=== PATIENT | female | born 1960 | race Caucasian/White ===

== ENCOUNTER → 2024-09-17 | Outpatient (CLI) | payer OTHER, SELFPAY ==
--- NOTE | 2024-09-14 16:30 | LES_PTH ---
PATIENT: MILLA JOHNSTON LOC: [facility] U#:[id number] AGE/SX: 63/F ROOM: RE09/17/[address]: Dr. Howard Tarango MD : 1960 BED: DIS: 09/17/2024 SPEC #: [id number] RECD: 09/17/24 10:15 STATUS: AZUCENA REGumaro #: [id number] ALBERT: 09/14/24 16:[address]: Howard Tarango DEPT: SURGICAL PATHOLOGY RECD BY: Felix Hanna ENTERED: 09/17/24 11:31 SP TYPE: Lesion OTHR DR: No Primary Care Phys Tissues: A - Skin of eyelid, NOS Procedures: Surgery Specimen Level IV HEADER OPERATION: Cyst removal, left lower eyelid PRE-OP DIAGNOSIS: Cyst vs nevus TISSUE SUBMITTED: A- Left lower eyelid lesion MICROSCOPIC DIAGNOSIS A. Eyelid, lower, left, cyst, shave: * Hidrocystoma. MICROSCOPIC DESCRIPTION Slides are reviewed. GROSS DESCRIPTION A. Received in formalin labeled with the patient's name and date of . Designated as left lower eyelid is a 0.3 x 0.2 x <0.1 cm slightly irregular daugherty skin shave devoid of orientation. The resection margin is inked black. Entirely submitted in 1 cassette. CO 09/17/2024 [id number]
--- OUTSIDE RECORDS SUMMARY | 2024-09-17 22:07 | XMS RPT_ITS | CCD ---
Author Organization [facility] Care Team Providers Care Shuttle Van Driver Name Role Phone REFERRING, OSMAN BRENDA MANNING Unavailable Unavailable FABRICE BIRCH Unavailable Unavailable DIMITRI VARGAS MD, DR DIMITRI Cabral Primary Care Physician ( SAM ADKINS, DR DIMITRI Cabral Primary Care Physician ( QUETA ONLINE MEDIA DIRECTOR-PICK PACK WORKER, FABRICE Elly Primary Care Physicia n QUETA ONLINE MEDIA DIRECTOR-PICK PACK WORKER, FABRICE S Primary Care Unava ilable QUETA ONLINE MEDIA DIRECTOR-PICK PACK WORKER, FABRICE S Attending Unava ilable QUETA ONLINE MEDIA DIRECTOR-PICK PACK WORKER, FABRICE S Primary Care Unava ilable QUETA ONLINE MEDIA DIRECTOR-PICK PACK WORKER, FABRICE S Attending Unava ilable QUETA ONLINE MEDIA DIRECTOR-PICK PACK WORKER, FABRICE S Primary Care Unava ilable QUETA ONLINE MEDIA DIRECTOR-PICK PACK WORKER, FABRICE S Attending Unava ilable QUETA ONLINE MEDIA DIRECTOR-PICK PACK WORKER, FABRICE S Attending Unava ilable QUETA ONLINE MEDIA DIRECTOR-PICK PACK WORKER, FABRICE S Primary Care Unava ilable Prah, Trell Attending Unavailable Prah, Trell Attending Unavailable Prah, Trell Attending Unavailable Prah, Trell Referring Unavailable Prah, Trell Attending Unavailable Prah, Trell Attending Unavailable BALTES ONLINE MEDIA DIRECTOR-PICK PACK WORKER, HIMANSHU Attending Unavailabl e QUETA ONLINE MEDIA DIRECTOR-PICK PACK WORKER, FABRICE S Primary Care Unava ilable QUETA ONLINE MEDIA DIRECTOR-PICK PACK WORKER, FABRICE S Primary Care Unava ilable QUETA ONLINE MEDIA DIRECTOR-PICK PACK WORKER, FABRICE S Attending Unava ilable ESPERANZA RODRIGUEZ DO Attending Unavailable QUETA ONLINE MEDIA DIRECTOR-PICK PACK WORKER, FABRICE S Primary Care Unava ilable Allergies Allergy Classification Reported Allergen(s) Allergy Type Date of Onset Reaction(s) Facility (8 sources) Cephalexin; Translations: [cephalexin] Drug Allergy Weal (disorder) [facility] (8 sources) Sulfamethoxazole / Trimethoprim; Translations: [sulfamethoxazole-tr imethoprim] Drug Allergy Weal (disorder) [facility] (1 source) misc non-codified allergy 1 Drug allergy [facility] Comment on above: pt is unable to reca ll what it is (1 source) Cephalexin Drug Allergy 4 [facility] Repository (1 source) Sulfamethoxazole Drug Allergy 4 [facility] Repository (1 source) Trimethoprim Drug Allergy 4 [facility] Repository Medications Current Medications Medication Drug Class(es) Dates Sig (Normalized) Sig (Original) apremilast 30 mg oral tablet (3 sources) Start: 10-26-2023 Otezla 30 mg oral tablet Dose : 30 mg = 1 tab(s), Oral, BID, 0 Refill(s) Start Date: 10/26/23 Status: Ordered Repeat number: 1 ciprofloxacin 250 mg oral tablet (8 sources) Quinolone Antimicrobial Start: 10-26-2023 Cipro 250 mg oral tablet See Instructions, take one tablet as needed, # 30 tab(s), 11 Refill(s), Pharmacy: [facility]/pharmacy #[id number], 162, cm, 10/26/23 13:19:00 EDT, Height, 55.6, kg, 10/26/23 13:19:00 EDT, Dosing Weight Start Date: 10/26/23 Status: Ordered Quantity: 30.0 Unit: tab(s) Repeat number: 12 Start: 03-01-2022 Cipro 250 mg o ral tablet See Instructions, take one tablet as needed, # 30 tab(s), 5 Refill(s), [facility]: [id number], 160.5, cm, 02/16/22 8:47:00 EST, Height, 56.9, kg, 02/16/22 8:47:00 EST, Dosing Weight Start Date: 03/01/22 Status: Ordered Start: 02-17-2021 Cipro 250 mg o ral tablet See Instructions, take one tablet as needed, # 30 tab(s), 0 Refill(s), [facility] 163.5, cm, 02/11/21 8:23:00 EST, Height, 56, kg, 02/11/21 8:23:00 EST, Dosing Weight Start Date: 02/17/21 Status: Ordered Fish Oils (6 sources) Start: 08-25-2022 take 1 mg by mouth o nce daily Fish Oil 1000 mg oral capsule mg = cap(s), Oral, qDay, 0 Refill(s) Start Date: 08/25/22 Status: Ordered Repeat number: 1 Start: 08-25-2022 take 1 mg by mouth once daily Fish Oil 1000 mg oral capsule mg = cap(s), Oral, qDay, 0 Refill(s) Start Date: 08/25/22 Status: Ordered magnesium amino acids chelat e (as elemental magnesium) 300 mg oral capsule (4 sources) Start: 08-25-2022 magnesium reese o acids chelate (as elemental magnesium) 300 mg oral capsule Dose : 300 mg = 1 cap(s), Oral, qDay, # 100 cap(s), 0 Refill(s) Start Date: 08/25/22 Status: Ordered Misc Medication (6 sources) Start: 08-25-2022 Misc Medicatio n adrenal strength, 0 Refill(s), 59 Start Date: 08/25/22 Status: Ordered Repeat number: 1 Start: 08-25-2022 Misc Medicatio n adrenal strength, 0 Refill(s), 59 Start Date: 08/25/22 Status: Ordered Multivitamin preparation (1 source) Start: 08-15-2024 take 1 tablet by mouth once daily Multivitamin Dose = 1 tab(s), Oral, Daily, 0 Refill(s) Start Date: 08/15/24 Status: Ordered Repeat number: 1 nitrofurantoin, macrocrystals 25 mg / nitrofurantoin, monohydrate 75 mg oral capsule (1 source) Nitrofuran Antibacterial Start: 08-15-2024 End: 08-20-2024 Macrobid 100 mg oral capsule Dose : 100 mg = 1 cap(s), Oral, BID, Take with food, X 5 day(s), # 10 cap(s), 0 Refill(s), 08/20/24 8:50:00 AM EDT, Pharmacy: [facility]/pharmacy #[id number], Recurrent UTI, 162, cm, 08/15/24 8:35:00 EDT, Height, 55.2, kg, 08/15/24 8:32:00 EDT, Dosing Weight Start Date: 08/15/24 Stop Date: 08/20/24 Status: Ordered Quantity: 10.0 Unit: cap(s) Repeat number: 1 Indications: Urinary tract infection, site not specified; PEG-3350 with Electrolytes (Eqv-GoLYTELY) oral powder for reconstitution (1 source) Start: 04-04-2024 PEG-3350 with Electrolytes (Eqv-GoLYTELY) oral powder for reconstitution See Instructions, Take as directed starting 1 day before colonoscopy. Follow instructions as provided by your GI provider at [facility]., # 1 EA, 0 Refill(s), [id number], Positive colorectal cancer screening using Cologuard test, 162, cm, 04/04/24 10:10:00 EST, Height, kg, 04/04/24 10:10:00 EST, Dosing Weight Start Date: 04/04/24 Status: Ordered Quantity: 1.0 Unit: EA Repeat number: 1 Indication: Other fecal abnormalities Probiotic (3 sources) Start: 10-26-2023 Probiotic 0 Refill(s) Start Date: 10/26/23 Status: Ordered Repeat number: 1 Start: 10-26-2023 Probiotic 0 Re fill(s) Start Date: 10/26/23 Status: Ordered Problems Active Problems Problem Classification Problem Date Documented Da te Episodic/Chronic Abdominal pain (3 sources) Pain in pelvis 08-25-2022 Episodic Diseases of white blood cells (6 sources) Leukocytosis; Translations: [Elevated white blood cell count, unspecified] Onset: 11-18-2022 Chronic Other inflammatory condition of skin (1 source) Psoriasis, unspecified; Translations: [Psoriasis, unspecified] Onset: 06-09-2023 Chronic Other non-traumatic joint disorders (3 sources) Hip pain 08-25-2022 Episodic Other screening for suspected conditions (not mental disorders or infectious disease) (4 sources) Encounter for screening for malignant neoplasm of cervix; Translations: [Stool DNA-based colorectal cancer screening positive] Onset: 08-25-2022 Episodic Other skin disorders (3 sources) Eruption 06-17-2022 Episodic Other skin disorders (1 source) Rash and other nonspecific skin eruption; Translations: [Rash and other nonspecific skin eruption] Onset: 06-09-2023 Episodic Skin and subcutaneous tissue infections (3 sources) Cellulitis of foot 06-08-2022 Episodic Spondylosis; intervertebral disc disorders; other back problems (3 sources) Low back pain 08-25-2022 Episodic Unclassified (1 source) Unknown / UNK(Unknown) Onset: 09-24-2016 Unclassified (20 sources) Patient encounter status 01-17-2020 Unclassified (6 sources) Cancer cervix screening status 08-25-2022 Urinary tract infections (10 sources) Recurrent urinary tract infection; Translations: [Urinary tract infection, site not specified] Onset: 08-15-2024 02-11-2021 Episodic Past or Other Problems Problem Classification Problem Date Documented Da te Episodic/Chronic Unclassified (1 source) SCREENING Onset: 09-24-2016 Results Test Name Value Interpretation Reference Range Facility No Panel Informationon 08-15 Culture Urine 50,000 - 100,000 cfu/ml Multiple bacterial morphotypes present. Probable Contamination. Suggest recollection if clinically indicated. [facility] Final Surgical Pathology Rep latosha 04-20-2024 Final Surgical Pathology Report . Pathology Reports Accession: Collected Date/Time: Received Date/Time: Pathologist: [id number] 04/18/2024 09:10 EST 04/19/2024 08:34 EST MD NOEMY OLVERA Final Surgical Pathology Report DIAGNOSIS: TRANSVERSE COLON, BIOPSY: - FECAL DEBRIS - INTACT COLONIC MUCOSA NOT IDENTIFIED CLINICAL INFORMATION: OTHER FECAL ABNORMALITIES Procedure: COLONOSCOPY WITH POLYPECTOMY Preoperative diagnosis: POSITIVE COLOGUARD Postoperative diagnosis: POSITIVE COLOGUARD SPECIMEN: A TRANSVERSE COLON POLYP GROSS DESCRIPTION: All parts labelled with patient name and [id number] Received in formalin labeled transverse colon polyp is 1 daugherty fragment measuring 0.2 cm and fecal debris also identified. TS-1 Michelle Caputo, Grossing Library Media Technician/ Dr. Boogie Gusman, Pathologist Performed by Michelle Caputo MICROSCOPIC DESCRIPTION: The microscopic examination is performed, except in the case of Gross Only. Verified by Pathology Report verified by [facility] NOEMY OLVERA MD Sign out Date: 04/20/2024 12:24 Performing Lab: [facility], [address] [place] [id number] [facility] Pathology Dept Disclaimer If ancillary studies were utilized, the following Laboratory Developed Test (LDT) disclaimer will apply: Under CLIA requirements, [facility] is qualified to perform high complexity testing. For all ancillary stains, positive and negative controls stain appropriately. Performance characteristics of immunohistochemical and chromogenic in-situ hybridization tests have been determined by [facility]. These tests are used for clinical purposes, They should not be regarded as investigational or for research. Normal [facility] MA MAMMOGRAM DIAGNOSTIC RIGH T W/TOMOon 02-09-2024 MA MAMMOGRAM DIAGNOSTIC RIGHT W/COLBY ORIGINAL FROM: [address] [address] PROCEDURE FOR: MILLA KEY [address] [place] [phone] Home: PID#: [id number] Exam#: [id number] : 1960 Age: 63 TO: FABRICE QUETA ONLINE MEDIA DIRECTOR [address] [address] Fax: NO FAX EXAMINATION: DIAGNOSTIC DIGITAL RIGHT BREAST MAMMOGRAM WITH TOMOSYNTHESIS, 02/09/2024 8:23 am TECHNIQUE: Diagnostic mammography of the right breast was performed with tomosynthesis. 2D standard and 3D tomosynthesis combination imaging performed through the right breast. Computer aided detection was utilized in the interpretation of this exam. Current study was also evaluated with a Computer Aided Detection (CAD) system. COMPARISON: Prior mammography dated 02/07/2024, 03/22/2023. HISTORY: ORDERING SYSTEM PROVIDED HISTORY: Reason for Exam: add views FINDINGS: BREAST DENSITY: The breasts are heterogeneously dense, which may obscure small masses. Previously described asymmetry of the right breast on CC view only compresses into normal fibroglandular tissue on spot compression tomographic views. No significant masses, calcifications, or other findings. IMPRESSION: No mammographic evidence of malignancy. The patient may return to annual mammographic screening. BIRADS: BI-RADS: 2: Benign RECALL: return to screening RECALL TYPE: mammo LETTER SENT: Normal BI-RADS 1 and 2 Interpreted by: Jason Pinto MD Preliminary Report By: Jason Pinto MD Electronically signed By Jason Pinto MD Dictated Date: 02/09/2024 8:42:50 AM Prelim Date: 02/09/2024 8:43:59 AM Sign Date: 02/09/2024 8:43:59 AM Ordering Provider: FABRICE BIRCH CLINICAL: ASYMMETRIC DENSITY RIGHT BREAST. Prompt Care Rn: HALIE MOSELEY RT(R)(M)(CT) letter sent: Normal BI-RADS 1 and 2 Mammogram BI-RADS: 2 Benign Normal [facility] .Auto Diffon 02-07-2024 Basophil, Absolute 0.1 10 3/mcL Normal 0.0-0.2 [facility] Comment on above: Performed By: #### A DIFF, CBC, GFR, LIPID, BMP, ANEU #### [address] [address] Basophils/100 WBC (Bld) 0.6 % Normal 0.0-2.5 [facility] Comment on above: Performed By: #### A DIFF, CBC, GFR, LIPID, BMP, ANEU #### [address] [address] Eosinophil, Absolute 0.2 10 3/mcL Normal 0.0-0.7 [facility] Comment on above: Performed By: #### A DIFF, CBC, GFR, LIPID, BMP, ANEU #### [address] [address] Eosinophils/100 WBC (Bld) 1.3 % Normal 0.0-7.0 [facility] Comment on above: Performed By: #### A DIFF, CBC, GFR, LIPID, BMP, ANEU #### [address] [address] Lymphocyte, Absolute 3.0 10 3/mcL Normal 0.9-4.3 [facility] Comment on above: Performed By: #### A DIFF, CBC, GFR, LIPID, BMP, ANEU #### [address] [address] Lymphocytes/100 WBC (Bld) 16.8 % Low 20.0-40.0 [facility] Comment on above: Performed By: #### A DIFF, CBC, GFR, LIPID, BMP, ANEU #### [address] [address] Monocyte, Absolute 1.1 10 3/mcL Normal 0.1-1.4 [facility] Comment on above: Performed By: #### A DIFF, CBC, GFR, LIPID, BMP, ANEU #### [address] [address] Monocytes/100 WBC (Bld) 6.2 % Normal 2.0-13.0 [facility] Comment on above: Performed By: #### A DIFF, CBC, GFR, LIPID, BMP, ANEU #### [address] [address] Neutrophils/100 WBC (Bld) 75.1 % High 50.0-75.0 [facility] Comment on above: Performed By: #### A DIFF, CBC, GFR, LIPID, BMP, ANEU #### [address] [address] .GFRon 02-07-2024 GFR 102 ml/min/1.73sqm Normal [facility] Comment on above: Result Comment: GFR Population mean for , Non- Americans Ages 20-29 = 116 mL/min/1.73 sq.m. Ages 30-39 = 107 mL/min/1.73 sq.m. Ages 40-49 = 99 mL/min/1.73 sq.m. Ages 50-59 = 93 mL/min/1.73 sq.m. Ages 60-69 = 85 mL/min/1.73 sq.m. Ages 70+ = 75 mL/min/1.73 sq.m. Chronic Kidney Disease: Less than 60 mL/min/1.73 square meters End Stage Renal Disease: Less than 15 mL/min/1.73 square meters Performed By: #### A DIFF, CBC, GFR, LIPID, BMP, ANEU #### [address] [address] GFR Non- 85 ml/min/1.73sqm Normal [facility] Comment on above: Result Comment: GFR Population mean for , Non- Americans Ages 20-29 = 116 mL/min/1.73 sq.m. Ages 30-39 = 107 mL/min/1.73 sq.m. Ages 40-49 = 99 mL/min/1.73 sq.m. Ages 50-59 = 93 mL/min/1.73 sq.m. Ages 60-69 = 85 mL/min/1.73 sq.m. Ages 70+ = 75 mL/min/1.73 sq.m. Chronic Kidney Disease: Less than 60 mL/min/1.73 square meters End Stage Renal Disease: Less than 15 mL/min/1.73 square meters Performed By: #### A DIFF, CBC, GFR, LIPID, BMP, ANEU #### [address] [address] .NEUABSon 02-07-2024 Neutrophil, Absolute 13.3 10 3/mcL High 2.3-8.1 [facility] Comment on above: Performed By: #### A DIFF, CBC, GFR, LIPID, BMP, ANEU #### [address] [address] BMPon 02-07-2024 BUN/Creatinine Ratio 14 ratio Normal 7-27 [facility] Comment on above: Performed By: #### A DIFF, CBC, GFR, LIPID, BMP, ANEU #### [address] [address] Calcium [Mass/Vol] 9.6 mg/dL Normal 8.4-10.2 [facility] Comment on above: Performed By: #### A DIFF, CBC, GFR, LIPID, BMP, ANEU #### [address] [address] Chloride [Moles/Vol] 104 mmol/L Normal 98-107 [facility] Comment on above: Performed By: #### A DIFF, CBC, GFR, LIPID, BMP, ANEU #### [address] [address] CO2 [Moles/Vol] 28 mmol/L Normal 23-31 [facility] Comment on above: Performed By: #### A DIFF, CBC, GFR, LIPID, BMP, ANEU #### [address] [address] Creatinine [Mass/Vol] 0.70 mg/dL Normal 0.55-1.02 [facility] Comment on above: Result Comment: Test ing performed on Sequence Dimension EXL analyzer using a modified kinetic Robert technique. Performed By: #### A DIFF, CBC, GFR, LIPID, BMP, ANEU #### [place] [address] Electrolyte Balance 10.0 mEq/L Normal 4.0-15.0 [facility] Comment on above: Performed By: #### A DIFF, CBC, GFR, LIPID, BMP, ANEU #### [address] [address] Glucose [Mass/Vol] 97 mg/dL Normal 80-115 [facility] Comment on above: Performed By: #### A DIFF, CBC, GFR, LIPID, BMP, ANEU #### [address] [address] Potassium [Moles/Vol] 4.5 mmol/L Normal 3.5-5.1 [facility] Comment on above: Performed By: #### A DIFF, CBC, GFR, LIPID, BMP, ANEU #### [address] [address] Sodium [Moles/Vol] 142 mmol/L Normal 136-145 [facility] Comment on above: Performed By: #### A DIFF, CBC, GFR, LIPID, BMP, ANEU #### [address] [address] Urea nitrogen [Mass/Vol] 10 mg/dL Normal 7-18 [facility] Comment on above: Performed By: #### A DIFF, CBC, GFR, LIPID, BMP, ANEU #### [address] [address] CBCon 02-07-2024 Erythrocyte distribution width (RBC) [Ratio] 13.6 % Normal 11.5-15.5 [facility] Comment on above: Performed By: #### A DIFF, CBC, GFR, LIPID, BMP, ANEU #### [address] [address] Hematocrit (Bld) [Volume fraction] 43.2 % Normal 34.0-46.0 [facility] Comment on above: Performed By: #### A DIFF, CBC, GFR, LIPID, BMP, ANEU #### [place] [address] Hgb 14.4 G/dL Normal 12.0-16.0 [facility] Comment on above: Performed By: #### A DIFF, CBC, GFR, LIPID, BMP, ANEU #### [place] [id number] MCH (RBC) [Entitic mass] 31.8 pg Normal 27.0-33.0 [facility] Comment on above: Performed By: #### A DIFF, CBC, GFR, LIPID, BMP, ANEU #### [place] [address] MCHC 33.4 G/dL Normal 32.0-36.0 [facility] Comment on above: Performed By: #### A DIFF, CBC, GFR, LIPID, BMP, ANEU #### [place] [id number] MCV (RBC) [Entitic vol] 95.2 fL Normal 80.0-99.0 [facility] Comment on above: Performed By: #### A DIFF, CBC, GFR, LIPID, BMP, ANEU #### [place] [id number] Platelet 298 10 3/mcL Normal 150-450 [facility] Comment on above: Performed By: #### A DIFF, CBC, GFR, LIPID, BMP, ANEU #### [place] [address] Platelet mean volume (Bld) [Entitic vol] 8.4 fL Normal 6.6-10.5 [facility] Comment on above: Performed By: #### A DIFF, CBC, GFR, LIPID, BMP, ANEU #### [place] [address] [place], [place] [address] RBC 4.54 10 6/mcL Normal 4.10-5.30 [facility] Comment on above: Performed By: #### A DIFF, CBC, GFR, LIPID, BMP, ANEU #### [place] [address] [place], [place] [address] WBC 17.7 10 3/mcL High 4.5-10.8 [facility] Comment on above: Performed By: #### A DIFF, CBC, GFR, LIPID, BMP, ANEU #### [place] [address] [place], [place] [address] LABORATORYOrdered By: SYSTEM SYSTEM on 02-07-2024 Basophils (Bld) [#/Vol] 0.1 103/mcL Normal 0.0 - 0.2 10^3/mcL AO Workflow SS Basophils/100 WBC (Bld) 0.6 % Normal 0.0 - 2.5 % AO Workflow SS Calcium [Mass/Vol] 9.6 mg/dL Normal 8.4 - 10. 2 mg/dL AO ADM SS Chloride [Moles/Vol] 104 mmol/L Normal 98 - 10 7 mmol/L AO ADM SS CO2 [Moles/Vol] 28 mmol/L Normal 23 - 31 mmol/L AO ADM SS Creatinine [Mass/Vol] 0.70 mg/dL Normal 0.55 - 1.02 mg/dL AO ADM SS Comment on above: Interpretive Data: T esting performed on Siemens Dimension EXL analyzer using a modified kinetic Robert technique. Electrolyte Balance 10.0 mEq/L Normal 4.0 - 15 .0 mEq/L AO ADM SS Eosinophil, Absolute 0.2 103/mcL Normal 0.0 - 0 .7 10^3/mcL AO Workflow SS Eosinophils/100 WBC (Bld) 1.3 % Normal 0.0 - 7.0 % AO Workflow SS Erythrocyte distribution width (RBC) [Ratio] 13.6 % Normal 11.5 - 15.5 % AO Workflow SS GFR/1.73 sq M.predicted among blacks MDRD (S/P/Bld) [Vol rate/Area] 102 ml/min/1.73sqm Invalid Interpretation Code AO Chemistry S Comment on above: Interpretive Data: GFR Population mean for , Non- Americans Ages 20-29 = 116 mL/min/1.73 sq.m. Ages 30-39 = 107 mL/min/1.73 sq.m. Ages 40-49 = 99 mL/min/1.73 sq.m. Ages 50-59 = 93 mL/min/1.73 sq.m. Ages 60-69 = 85 mL/min/1.73 sq.m. Ages 70+ = 75 mL/min/1.73 sq.m. Chronic Kidney Disease: Less than 60 mL/min/1.73 square meters End Stage Renal Disease: Less than 15 mL/min/1.73 square meters GFR/1.73 sq M.predicted among non-blacks MDRD (S/P/Bld) [Vol rate/Area] 85 ml/min/1.73sqm Invalid Interpretation Code AO Chemistry S Comment on above: Interpretive Data: GFR Population mean for , Non- Americans Ages 20-29 = 116 mL/min/1.73 sq.m. Ages 30-39 = 107 mL/min/1.73 sq.m. Ages 40-49 = 99 mL/min/1.73 sq.m. Ages 50-59 = 93 mL/min/1.73 sq.m. Ages 60-69 = 85 mL/min/1.73 sq.m. Ages 70+ = 75 mL/min/1.73 sq.m. Chronic Kidney Disease: Less than 60 mL/min/1.73 square meters End Stage Renal Disease: Less than 15 mL/min/1.73 square meters Glucose [Mass/Vol] 97 mg/dL Normal 80 - 115 mg/dL AO ADM SS Hematocrit (Bld) [Volume fraction] 43.2 % Normal 34.0 - 46.0 % AO Workflow SS Hemoglobin (Bld) [Mass/Vol] 14.4 G/dL Normal 12.0 - 16.0 G/dL AO Workflow SS Lymphocytes (Bld) [#/Vol] 3.0 103/mcL Normal 0.9 - 4.3 10^3/mcL AO Workflow SS Lymphocytes/100 WBC (Bld) 16.8 % Low 20.0 - 40.0 % AO Workflow SS MCH (RBC) [Entitic mass] 31.8 pg Normal 27.0 - 33.0 pg AO Workflow SS MCHC 33.4 G/dL Normal 32.0 - 36.0 G/dL AO Workflow SS MCV (RBC) [Entitic vol] 95.2 fL Normal 80.0 - 99.0 fL AO Workflow SS Monocytes (Bld) [#/Vol] 1.1 103/mcL Normal 0.1 - 1.4 10^3/mcL AO Workflow SS Monocytes/100 WBC (Bld) 6.2 % Normal 2.0 - 13.0 % AO Workflow SS Neutrophils (Bld) [#/Vol] 13.3 103/mcL High 2.3 - 8.1 10^3/mcL AO Workflow SS Neutrophils/100 WBC (Bld) 75.1 % High 50.0 - 75.0 % AO Workflow SS Platelet mean volume (Bld) [Entitic vol] 8.4 fL Normal 6.6 - 10.5 fL AO Workflow SS Platelets (Bld) [#/Vol] 298 103/mcL Normal 150 - 450 10^3/mcL AO Workflow SS Potassium [Moles/Vol] 4.5 mmol/L Normal 3.5 - 5.1 mmol/L AO ADM SS RBC (Bld) [#/Vol] 4.54 106/mcL Normal 4.10 - 5.3 0 10^6/mcL AO Workflow SS Sodium [Moles/Vol] 142 mmol/L Normal 136 - 145 mmol/L AO ADM SS Urea nitrogen [Mass/Vol] 10 mg/dL Normal 7 - 18 mg/dL AO ADM SS Urea nitrogen/Creatinine [Mass ratio] 14 ratio Normal 7 - 27 ratio AO ADM SS WBC (Bld) [#/Vol] 17.7 103/mcL High 4.5 - 10.8 10^3/mcL AO Workflow SS LABORATORYOrdered By: Gurdeep Barron on 02-07-2024 Cholesterol [Mass/Vol] 191 mg/dL Normal 0 - 200 mg/dL AO ADM SS Comment on above: Interpretive Data: C holesterol Reference Interval: Less than 200 Desirable 200-239 Borderline high risk 240 and above High risk Cholesterol in HDL [Mass/Vol] 61 mg/dL High 40 - 60 mg/dL AO ADM SS Cholesterol in LDL [Mass/Vol] 103 mg/dL Normal 0 - 130 mg/dL AO ADM SS Triglyceride [Mass/Vol] 133 mg/dL Normal 0 - 150 mg/dL AO ADM SS Comment on above: Interpretive Data: T riglyceride Reference Interval: Less than 150 Normal 150-199 Borderline high risk 200-499 High risk 500 or higher Very high risk LIPIDon 02-07-2024 Cholesterol [Mass/Vol] 191 mg/dL Normal 0-200 [facility] Comment on above: Result Comment: Chol esterol Reference Interval: Less than 200 Desirable 200-239 Borderline high risk 240 and above High risk Performed By: #### A DIFF, CBC, GFR, LIPID, BMP, ANEU #### [place] [address] Cholesterol in HDL [Mass/Vol] 61 mg/dL High 40-60 [facility] Comment on above: Performed By: #### A DIFF, CBC, GFR, LIPID, BMP, ANEU #### [address] [address] Cholesterol in LDL [Mass/Vol] 103 mg/dL Normal 0-130 [facility] Comment on above: Performed By: #### A DIFF, CBC, GFR, LIPID, BMP, ANEU #### [address] [address] Triglyceride [Mass/Vol] 133 mg/dL Normal 0-150 [facility] Comment on above: Result Comment: Trig lyceride Reference Interval: Less than 150 Normal 150-199 Borderline high risk 200-499 High risk 500 or higher Very high risk Performed By: #### A DIFF, CBC, GFR, LIPID, BMP, ANEU #### [address] [address] [place] MAMMOGRAM SCREENING BILAT ERAL W/TOMOon 02-07-2024 MA MAMMOGRAM SCREENING BILATERAL W/COLBY ORIGINAL FROM: [address] [address] PROCEDURE FOR: MILLA KEY [address] [place] [phone] Home: PID#: [id number] Exam#: [id number] : 1960 Age: 63 TO: FABRICE BIRCH ONLINE MEDIA DIRECTOR P[employer] P[employer] WORKER [address], [place] [address] Fax: NO FAX EXAMINATION: SCREENING DIGITAL BILATERAL MAMMOGRAM WITH TOMOSYNTHESIS, 02/07/2024 8:44 am TECHNIQUE: Screening mammography of the bilateral breasts was performed with tomosynthesis. 2D standard and 3D tomosynthesis combination imaging performed through both breasts in the MLO and CC projection. Computer aided detection was utilized in the interpretation of this exam. COMPARISON: March 22, 2023, March 17, 2022, March 04, 2021 HISTORY: Breast cancer screening. FINDINGS: BREAST DENSITY: The breasts are heterogeneously dense, which may obscure small masses. A 6 mm asymmetry in the right inner breast on the CC view only located approximately 2.5 cm from the nipple represents interval change. There is no suspicious mass architectural distortion or microcalcification in the left breast. IMPRESSION: The possible asymmetry in the right inner breast appears indeterminate. Additional views with spot compression tomosynthesis in the CC position along with a regular ML view are recommended. If a mass is confirmed, then an ultrasound will be recommended. We will contact the patient to arrange for the exam. Raz Haddad risk calculations, generated with the history provided, report this patient's 10 year risk and lifetime risk for developing breast cancer at 3.4% and 7.5%, respectively. Based on this assessment tool, if the patient's calculated lifetime risk is below 20%, then the patient is considered at average risk for developing breast cancer. If the patient's calculated lifetime risk is at or above 20%, then the patient is considered high risk for developing breast cancer and may be a candidate for supplemental breast MRI screening in addition to annual mammographic screening per the [employer]. BIRADS: MAMMOGRAM BI-RADS: 0: Needs addl evaluation RECALL: immediate RECALL TYPE: Right mammo + US LETTER SENT: Abnormal-Needs additional work up BI-RADS 0 Interpreted by: Miesha Rosales Preliminary Report By: Miesha Rosales Electronically signed By Miesha Rosales Dictated Date: 02/07/2024 11:31:18 AM Prelim Date: 02/07/2024 11:38:35 AM Sign Date: 02/07/2024 11:38:35 AM Ordering Provider: FABRICE BIRCH Prompt Care Rn: GELACIO Javier)(M) letter sent: Abnormal-Needs additional work up BI-RADS 0 Mammogram BI-RADS: 0 Indeterminate Normal [facility] CBC W/Diff, Automatedon 03- Absolute Lymph 3.48 X10 3/uL Normal 0.83-4.51 [facility] Comment on above: Performed By: #### L 503.0105, L506.0250, L100.0100, L500.4050, L100.9950, L504.2610 ####[facility] [address] [place], [address] Absolute Neut 9.0 X10 3/uL High 2.0-7.7 [facility] Comment on above: Performed By: #### L 503.0105, L506.0250, L100.0100, L500.4050, L100.9950, L504.2610 ####[facility] [address] [place], [address] Basophils/100 WBC (Bld) 0.6 % Normal 0-1 [facility] Comment on above: Performed By: #### L 503.0105, L506.0250, L100.0100, L500.4050, L100.9950, L504.2610 ####[facility] [address] [place], [address] Eosinophils/100 WBC (Bld) 1.5 % Normal 0-5 [facility] Comment on above: Performed By: #### L 503.0105, L506.0250, L100.0100, L500.4050, L100.9950, L504.2610 ####[facility] [address] [place], [address] Erythrocyte distribution width (RBC) [Ratio] 13.4 % Normal 11.6-14.6 [facility] Comment on above: Performed By: #### L 503.0105, L506.0250, L100.0100, L500.4050, L100.9950, L504.2610 ####[facility] [address] [place], [address] Hematocrit (Bld) [Volume fraction] 44.8 % Normal 37-47 [facility] Comment on above: Performed By: #### L 503.0105, L506.0250, L100.0100, L500.4050, L100.9950, L504.2610 ####[facility] [address] [place], [address] Hemoglobin (Bld) [Mass/Vol] 14.6 g/dL Normal 12.0-15.0 [facility] Comment on above: Performed By: #### L 503.0105, L506.0250, L100.0100, L500.4050, L100.9950, L504.2610 ####[facility] [address] [place], [address] IG% 0.400 Normal 0.0-0.9 [facility] Comment on above: Result Comment: IG% - Immature Granulocytes (promyelocytes, myelocytes and metamyelocytes) > 1% indicates that a LEFT SHIFT is Present. Performed By: #### L 503.0105, L506.0250, L100.0100, L500.4050, L100.9950, L504.2610 ####[facility] [address] [place], [address] Lymphocytes/100 WBC (Bld) 25.4 % Normal 19-41 [facility] Comment on above: Performed By: #### L 503.0105, L506.0250, L100.0100, L500.4050, L100.9950, L504.2610 ####[facility] [address] [place], [address] MCH (RBC) [Entitic mass] 30.2 pg Normal 27.0-32.0 [facility] Comment on above: Performed By: #### L 503.0105, L506.0250, L100.0100, L500.4050, L100.9950, L504.2610 ####[facility] [address] [place], [address] MCHC (RBC) [Mass/Vol] 32.6 g/dL Normal 32-36 [facility] Comment on above: Performed By: #### L 503.0105, L506.0250, L100.0100, L500.4050, L100.9950, L504.2610 ####[facility] [address] [place], [address] MCV (RBC) [Entitic vol] 92.8 fL Normal 81-99 [facility] Comment on above: Performed By: #### L 503.0105, L506.0250, L100.0100, L500.4050, L100.9950, L504.2610 ####[facility] [address] [place], [address] Monocytes/100 WBC (Bld) 6.4 % Normal 0-10 [facility] Comment on above: Performed By: #### L 503.0105, L506.0250, L100.0100, L500.4050, L100.9950, L504.2610 ####[facility] [address] [place], [address] Neutrophils/100 WBC (Bld) 65.7 % Normal 47-70 [facility] Comment on above: Performed By: #### L 503.0105, L506.0250, L100.0100, L500.4050, L100.9950, L504.2610 ####[facility] [address] [place], [address] Nucleated RBC (Bld) [#/Vol] 0 10*3/uL Normal 0-5 [facility] Comment on above: Performed By: #### L 503.0105, L506.0250, L100.0100, L500.4050, L100.9950, L504.2610 ####[facility] [address] [place], [address] Platelet mean volume (Bld) [Entitic vol] 9.3 fL Normal 6.2-12.0 [facility] Comment on above: Performed By: #### L 503.0105, L506.0250, L100.0100, L500.4050, L100.9950, L504.2610 ####[facility] [address] [place], [address] Platelets (Bld) [#/Vol] 327 10*3/uL Normal 150-450 [facility] Comment on above: Performed By: #### L 503.0105, L506.0250, L100.0100, L500.4050, L100.9950, L504.2610 ####[facility] [address] [place], [address] RBC (Bld) [#/Vol] 4.83 10*6/uL Normal 4.2-5.4 [facility] Comment on above: Performed By: #### L 503.0105, L506.0250, L100.0100, L500.4050, L100.9950, L504.2610 ####[facility] [address] [place], [address] RDW SD 45.9 fl High 35.1-43.9 [facility] Comment on above: Performed By: #### L 503.0105, L506.0250, L100.0100, L500.4050, L100.9950, L504.2610 ####[facility] [address] [place], [address] WBC (Bld) [#/Vol] 13.7 10*3/uL High 4.4-11.0 [facility] Comment on above: Performed By: #### L 503.0105, L506.0250, L100.0100, L500.4050, L100.9950, L504.2610 ####[facility] [address] [place], [address] CRPon 06-09-2023 C-REACTIVE PROT < 2.90 Normal 0.0-3.0 [facility] Comment on above: Result Comment: C-Re active Protein (CRP) provides useful information for the diagnosis, therapy and monitoring of inflammatory processes and associated diseases. For the evaluation of Relative Risk for Cardiovascular Disease, a High Sensitivity CRP (HSCRP) should be ordered. Performed By: #### L 101.9900, L501.6710 ####[facility] [address] [place], [address] Comprehensive Metabolic Prof ilon 06-09-2023 Albumin [Mass/Vol] 3.9 g/dL Normal 3.2-5.0 [facility] Comment on above: Order Comment: UNKNO WN1N Performed By: #### L 503.0105, L506.0250, L100.0100, L500.4050, L100.9950, L504.2610 ####[facility] [address] [place], [address] Albumin/Globulin [Mass ratio] 1.1 {ratio} Normal 0.9-2.4 [facility] Comment on above: Order Comment: UNKNO WN1N Performed By: #### L 503.0105, L506.0250, L100.0100, L500.4050, L100.9950, L504.2610 ####[facility] [address] [place], [address] ALK P 122 U/L High 45-117 [facility] Comment on above: Order Comment: UNKNO WN1N Performed By: #### L 503.0105, L506.0250, L100.0100, L500.4050, L100.9950, L504.2610 ####[facility] [address] [place], [address] ALT [Catalytic activity/Vol] 22 U/L Normal 13-56 [facility] Comment on above: Order Comment: UNKNO WN1N Performed By: #### L 503.0105, L506.0250, L100.0100, L500.4050, L100.9950, L504.2610 ####[facility] [address] [place], [address] AST [Catalytic activity/Vol] 20 U/L Normal 15-37 [facility] Comment on above: Order Comment: UNKNO WN1N Performed By: #### L 503.0105, L506.0250, L100.0100, L500.4050, L100.9950, L504.2610 ####[facility] [address] [place], [place], [address] Bilirubin [Mass/Vol] 0.50 mg/dL Normal 0.20-1.00 [facility] Comment on above: Order Comment: UNKNO WN1N Result Comment: For patients on eltrombopag therapy, use of Dimension [place] TBIL is not recommended. Performed By: #### L 503.0105, L506.0250, L100.0100, L500.4050, L100.9950, L504.2610 ####[facility] [address] [place], [address] BUN/CRE 17.8 RATIO Normal 10-20 [facility] Comment on above: Order Comment: UNKNO WN1N Performed By: #### L 503.0105, L506.0250, L100.0100, L500.4050, L100.9950, L504.2610 ####[facility] [address] [place], [address] CA,Total 9.8 mg/dL Normal 8.5-10.1 [facility] Comment on above: Order Comment: UNKNO WN1N Performed By: #### L 503.0105, L506.0250, L100.0100, L500.4050, L100.9950, L504.2610 ####[facility] [address] [place], [address] Chloride [Moles/Vol] 107 mmol/L Normal 98-107 [facility] Comment on above: Order Comment: UNKNO WN1N Performed By: #### L 503.0105, L506.0250, L100.0100, L500.4050, L100.9950, L504.2610 ####[facility] [address] [place], [address] CO2 [Moles/Vol] 28.0 mmol/L Normal 21.0-32.0 [facility] Comment on above: Order Comment: UNKNO WN1N Performed By: #### L 503.0105, L506.0250, L100.0100, L500.4050, L100.9950, L504.2610 ####[facility] [address] [place], [address] Creatinine [Mass/Vol] 0.73 mg/dL Normal 0.55-1.02 [facility] Comment on above: Order Comment: UNKNO WN1N Result Comment: The validity of the calculated GFR GFRAA in patients over 70 years has not been determined. Clinical correlation is essential. Performed By: #### L 503.0105, L506.0250, L100.0100, L500.4050, L100.9950, L504.2610 ####[facility] [address] [place], [address] ECRCL 69.00 ml/min Normal [facility] Comment on above: Order Comment: UNKNO WN1N Performed By: #### L 503.0105, L506.0250, L100.0100, L500.4050, L100.9950, L504.2610 ####[facility] [address] [place], [address] EST GFR - AA 104 mL/min Normal >60 [facility] Comment on above: Order Comment: UNKNO WN1N Result Comment: Afri can [place] GFR Calc Performed By: #### L 503.0105, L506.0250, L100.0100, L500.4050, L100.9950, L504.2610 ####[facility] [address] [place], [address] GAP 4 Low 5-15 [facility] Comment on above: Order Comment: UNKNO WN1N Performed By: #### L 503.0105, L506.0250, L100.0100, L500.4050, L100.9950, L504.2610 ####[facility] [address] [place], [address] GFR/1.73 sq M.predicted among non-blacks MDRD (S/P/Bld) [Vol rate/Area] 86 mL/min/{1.73_m2} Normal >60 [facility] Comment on above: Order Comment: UNKNO WN1N Result Comment: Non- GFR Calc Performed By: #### L 503.0105, L506.0250, L100.0100, L500.4050, L100.9950, L504.2610 ####[facility] [address] [place], [address] Globulin (S) [Mass/Vol] 3.7 g/dL Normal 2.2-4.2 [facility] Comment on above: Order Comment: UNKNO WN1N Performed By: #### L 503.0105, L506.0250, L100.0100, L500.4050, L100.9950, L504.2610 ####[facility] [address] [place], [address] Glucose [Mass/Vol] 80 mg/dL Normal 74-106 [facility] Comment on above: Order Comment: UNKNO WN1N Performed By: #### L 503.0105, L506.0250, L100.0100, L500.4050, L100.9950, L504.2610 ####[facility] [address] [place], [address] Potassium [Moles/Vol] 4.0 mmol/L Normal 3.5-5.1 [facility] Comment on above: Order Comment: UNKNO WN1N Performed By: #### L 503.0105, L506.0250, L100.0100, L500.4050, L100.9950, L504.2610 ####[facility] [address] [place], [address] Sodium [Moles/Vol] 139 mmol/L Normal 136-145 [facility] Comment on above: Order Comment: UNKNO WN1N Performed By: #### L 503.0105, L506.0250, L100.0100, L500.4050, L100.9950, L504.2610 ####[facility] [address] [place], [address] T PROT 7.6 g/dL Normal 6.4-8.2 [facility] Comment on above: Order Comment: UNKNO WN1N Performed By: #### L 503.0105, L506.0250, L100.0100, L500.4050, L100.9950, L504.2610 ####[facility] [address] [place], [address] Urea nitrogen [Mass/Vol] 13 mg/dL Normal 7-18 [facility] Comment on above: Order Comment: UNKNO WN1N Performed By: #### L 503.0105, L506.0250, L100.0100, L500.4050, L100.9950, L504.2610 ####[facility] [address] [place], [address] Erythrocyte Sed Rateon 06-08 SED RATE 6 mm/hr Normal 0-30 [facility] Comment on above: Performed By: #### L 101.9900, L501.6710 ####[facility] [address] [place], [address] Folates, (Folic Acid)on 05-26 FOLATES 14.10 ng/mL Normal 3.1-55.4 [facility] Comment on above: Order Comment: UNKNO WN1N Performed By: #### L 503.0105, L506.0250, L100.0100, L500.4050, L100.9950, L504.2610 ####[facility] [address] [place], [address] LDHon 06-09-2023 LDH 223 U/L Normal 84-246 [facility] Comment on above: Order Comment: UNKNO WN1N Performed By: #### L 503.0105, L506.0250, L100.0100, L500.4050, L100.9950, L504.2610 ####[facility] [address] [place], [address] Oncology Visit Reporton 05-26 Oncology Visit Report [facility] [address] [place] [address] OFFICE VISIT Date of Service: 06/09/23 1127 MR#: [id number] Acct: [id number] Name: MILLA KEY Rep #: [id number] : 1960 From: Trell Priest MD Age/Sex: 62/F Location: [facility] Status: Signed HPI Subjective Date of Service 06/09/23 Chief Complaint F/u for leukocytosis. History of Present Illness 62y.o.woman was found to have a circumscribed rash on the sole of the right foot. She was given steroid injection and topical cream in June 2022. She was found to have increased white cell count and referred for evaluation. The rash on the right sole was biopsied and it showed Psoriasis. She was thought to have reactive Leukocytosis, on observation, using steroid cream for her foot. Comes for follow up. [facility] Medical History Arthritis of both hips Fibroid uterus Pustular psoriasis Social History household members: spouse Smoking Status: Current some day smoker tobacco type: cigarettes alcohol intake: current alcohol intake frequency: holidays/special occasions only Alcohol type: beer substance use type: does not use Intake Vital Signs 12/16/22 11:17 06/09/23 11:29 Height 5 ft 4 in 5 ft 4 in Weight: 59.874 kg 56.047 kg BMI 22.6 21.2 BP 106/71 125/85 H Blood Pressure Location Lt brachial Lt brachial Position Sitting Sitting Respiration 17 16 Pulse 96 76 Pulse Source Monitor Monitor Temp 98.7 F 98.7 F Temperature Source Temporal Artery Temporal Artery Pulse Oximetry (%) 99 97 Oxygen Delivery Method room air room air Intake Is patient in pain?: No Allergies cephalexin [From Keflex] Adverse Reaction (Verified 06/09/23 11:31) Hives sulfamethoxazole [From Septra] Adverse Reaction (Verified 06/09/23 11:31) Hives trimethoprim [From Septra] Adverse Reaction (Verified 06/09/23 11:31) Hives Medications adrenal cortex (porcine) 80 mg tablet mg PO 10/18/22 [History Confirmed 06/09/23] omega 3-xip-koy-fish oil 300 mg-1,000 mg capsule (Fish Oil) 1 cap PO DAILY 10/18/22 [History Confirmed 06/09/23] Saccharomyces boulardii 250 mg capsule (Daily Probiotic (S. boulardii)) 250 mg PO DAILY 10/19/22 [History Confirmed 06/09/23] apremilast 10 mg (4)-20 mg (4)-30 mg (47) tablets in a dose pack (Otezla Starter) See Rx Instructions PO PER PKG DIR 10/19/22 [History Confirmed 06/09/23] ciprofloxacin HCl 250 mg tablet 250 mg PO DAILY PRN 10/19/22 [History Confirmed 06/09/23] clobetasol 0.05 % topical ointment 1 applic topical DAILY 10/19/22 [History Confirmed 06/09/23] tapinarof 1 % topical cream (Vtama) 1 applic topical BID-QID 10/19/22 [History Confirmed 06/09/23] magnesium 200 mg tablet 100 mg PO DAILY 06/09/23 [History Confirmed 06/09/23] Exam Physical Exam Const alert, oriented x3 and no apparent distress HEENT normocephalic, external ears normal and external nose normal Eyes PERRL, EOMs intact bilaterally and conjunctivae normal Neck full ROM and supple Lymph Lymphatic: no lymphadenopathy noted Chest inspection of chest normal Resp normal respiratory effort and clear to auscultation bilaterally Cardio regular rate, regular rhythm, S1 normal heart sound and S2 normal heart sound GI normal to inspection, nondistended, normoactive bowel sounds no CVA tenderness Back/Spine no CVA tenderness Extremity no clubbing, cyanosis or edema Skin Skin Narrative: + 3cm scaly patch R sole is resolving. Neuro oriented x3, CN's II-XII intact bilaterally and moves all extremities Coding Level of Care Code Off vis,est,level 3 Exam Problem Focused Diagnoses Psoriasis L40.9 Other elevated white blood cell (WBC) count D72.828 Leukocytosis type: other Scaly patch rash R21 Assessment and Plan Assessment and Plan (1) Psoriasis: Status: Acute Plan: To continue Oterzla (2) Leukocytosis: Status: Chronic Qualifiers: Leukocytosis type: other Qualified Code(s): D72.828 - Other elevated white blood cell count Comment: With neutrophilia, no premature cells since August 2022. Neutrophils today is 9. Stable with no abnormal cells. Plan: To continue observation, monitor Neutrophils. F/u with PCP and referred if new problems arise. (3) Scaly patch rash: Status: Chronic Comment: 3cm patchy scaly rash on sole of R foot, is resolving. Biopsy shows Psoriasis Plan: To continue Oterzla. 06/09/23 1154 Date Trell Arias Signature: Date (if applicable) CC: [employer]ET[employer] DIRECTOR-C Fabrice Birch Normal [facility] Retic Panelon 06-09-2023 IM RET FRACTION 4.50 Normal 3.00-15.90 [facility] Comment on above: Performed By: #### L 503.0105, L506.0250, L100.0100, L500.4050, L100.9950, L504.2610 ####[facility] [address] [place], [address] RET-HE 35.1 pg High 30-35 [facility] Comment on above: Performed By: #### L 503.0105, L506.0250, L100.0100, L500.4050, L100.9950, L504.2610 ####[facility] [address] [place], [address] Retic Count 1.17 Normal 0.5-1.5 [facility] Comment on above: Performed By: #### L 503.0105, L506.0250, L100.0100, L500.4050, L100.9950, L504.2610 ####[facility] [address] [place], [address] Vitamin B12on 06-09-2023 Cobalamin (Vitamin B12) [Mass/Vol] 535 pg/mL Normal 211-911 [facility] Comment on above: Performed By: #### L 503.0105, L506.0250, L100.0100, L500.4050, L100.9950, L504.2610 ####[facility] [address] [place], [address] MA MAMMOGRAM SCREENING BILAT ERAL W/TOMOon 03-22-2023 MA MAMMOGRAM SCREENING BILATERAL W/COLBY ORIGINAL FROM: [id number] [place], [place] [address] PROCEDURE FOR: MILLA KEY [address] [place] [address] Home: PID#: [id number] Exam#: [id number] : 1960 Age: 62 TO: FABRICE BIRCH ONLINE MEDIA DIRECTOR [facility] [address], [place] [address] Fax: NO FAX EXAMINATION: SCREENING DIGITAL BILATERAL MAMMOGRAM WITH TOMOSYNTHESIS, 03/22/2023 7:31 am TECHNIQUE: Screening mammography of the bilateral breasts was performed with tomosynthesis. 2D standard and 3D tomosynthesis combination imaging performed through both breasts in the MLO and CC projection. Computer aided detection was utilized in the interpretation of this exam. COMPARISON: 03/17/2022, 03/04/2021 HISTORY: Breast cancer screening. FINDINGS: BREAST DENSITY: Heterogeneously dense There are benign appearing calcifications in the right breast. There are no significant masses or calcifications. IMPRESSION: No mammographic evidence of malignancy. Continued screening with annual mammograms is recommended. Raz Bullockzick risk calculations, generated with the history provided, report this patient's 10 year risk and lifetime risk for developing breast cancer at 3.3% and 7.7%, respectively. Based on this assessment tool, if the patient's calculated lifetime risk is below 20%, then the patient is considered at average risk for developing breast cancer. If the patient's calculated lifetime risk is at or above 20%, then the patient is considered high risk for developing breast cancer and may be a candidate for supplemental breast MRI screening in addition to annual mammographic screening per the [employer]. BIRADS: MAMMOGRAM BI-RADS: 2: Benign finding RECALL: 1 year screening RECALL TYPE: mammo LETTER SENT: Normal BI-RADS 1 and 2 Interpreted by: Raji Leigh MD Preliminary Report By: Raji Leigh MD Electronically signed By Raji Leigh MD Dictated Date: 03/22/2023 5:34:56 PM Prelim Date: 03/22/2023 5:40:57 PM Sign Date: 03/22/2023 5:40:57 PM Ordering Provider: FABRICE BIRCH Prompt Care Rn: GELACIO HOFFMAN RT (R)(M) letter sent: Normal BI-RADS 1 and 2 Mammogram BI-RADS: 2 Benign Normal [facility] ([place]) CBC W/Diff, Automatedon 09- Absolute Lymph 3.00 X10 3/uL Normal 0.83-4.51 [facility] Comment on above: Performed By: #### L 500.4050, L100.0100, L504.2610 #### [facility] [address] [place], [address] Absolute Neut 7.8 X10 3/uL High 2.0-7.7 [facility] Comment on above: Performed By: #### L 500.4050, L100.0100, L504.2610 #### [facility] [address] [place], [address] Basophils/100 WBC (Bld) 0.7 % Normal 0-1 [facility] Comment on above: Performed By: #### L 500.4050, L100.0100, L504.2610 #### [facility] [address] [place], [address] Eosinophils/100 WBC (Bld) 1.5 % Normal 0-5 [facility] Comment on above: Performed By: #### L 500.4050, L100.0100, L504.2610 #### [facility] [address] [place], [address] Erythrocyte distribution width (RBC) [Ratio] 13.1 % Normal 11.6-14.6 [facility] Comment on above: Performed By: #### L 500.4050, L100.0100, L504.2610 #### [facility] [address] [place], [address] Hematocrit (Bld) [Volume fraction] 43.1 % Normal 37-47 [facility] Comment on above: Performed By: #### L 500.4050, L100.0100, L504.2610 #### [facility] [address] [place], [address] Hemoglobin (Bld) [Mass/Vol] 14.4 g/dL Normal 12.0-15.0 [facility] Comment on above: Performed By: #### L 500.4050, L100.0100, L504.2610 #### [facility] [address] [place], [address] IG% 0.300 Normal 0.0-0.9 [facility] Comment on above: Result Comment: IG% - Immature Granulocytes (promyelocytes, myelocytes and metamyelocytes) > 1% indicates that a LEFT SHIFT is Present. Performed By: #### L 500.4050, L100.0100, L504.2610 #### [facility] [address] [place], [address] Lymphocytes/100 WBC (Bld) 25.0 % Normal 19-41 [facility] Comment on above: Performed By: #### L 500.4050, L100.0100, L504.2610 #### [facility] [address] [place], [address] MCH (RBC) [Entitic mass] 31.6 pg Normal 27.0-32.0 [facility] Comment on above: Performed By: #### L 500.4050, L100.0100, L504.2610 #### [facility] [address] [place], [address] MCHC (RBC) [Mass/Vol] 33.4 g/dL Normal 32-36 [facility] Comment on above: Performed By: #### L 500.4050, L100.0100, L504.2610 #### [facility] [address] [place], [address] MCV (RBC) [Entitic vol] 94.7 fL Normal 81-99 [facility] Comment on above: Performed By: #### L 500.4050, L100.0100, L504.2610 #### [facility] [address] [place], [address] Monocytes/100 WBC (Bld) 7.7 % Normal 0-10 [facility] Comment on above: Performed By: #### L 500.4050, L100.0100, L504.2610 #### [facility] [address] [place], [address] Neutrophils/100 WBC (Bld) 64.8 % Normal 47-70 [facility] Comment on above: Performed By: #### L 500.4050, L100.0100, L504.2610 #### [facility] [address] [place], [address] Nucleated RBC (Bld) [#/Vol] 0 10*3/uL Normal 0-5 [facility] Comment on above: Performed By: #### L 500.4050, L100.0100, L504.2610 #### [facility] [address] [place], [address] Platelet mean volume (Bld) [Entitic vol] 9.0 fL Normal 6.2-12.0 [facility] Comment on above: Performed By: #### L 500.4050, L100.0100, L504.2610 #### [facility] [address] [place], [address] Platelets (Bld) [#/Vol] 324 10*3/uL Normal 150-450 [facility] Comment on above: Performed By: #### L 500.4050, L100.0100, L504.2610 #### [facility] [address] [place], [address] RBC (Bld) [#/Vol] 4.55 10*6/uL Normal 4.2-5.4 [facility] Comment on above: Performed By: #### L 500.4050, L100.0100, L504.2610 #### [facility] [address] [place], [address] RDW SD 45.9 fl High 35.1-43.9 [facility] Comment on above: Performed By: #### L 500.4050, L100.0100, L504.2610 #### [facility] [address] [place], [address] WBC (Bld) [#/Vol] 12.0 10*3/uL High 4.4-11.0 [facility] Comment on above: Performed By: #### L 500.4050, L100.0100, L504.2610 #### [facility] [address] [place], [address] Comprehensive Metabolic Prof [facility] 12-16-2022 Albumin [Mass/Vol] 3.9 g/dL Normal 3.2-5.0 [facility] Comment on above: Order Comment: 1 Performed By: #### L 500.4050, L100.0100, L504.2610 #### [facility] [address] [place], [address] Albumin/Globulin [Mass ratio] 1.1 {ratio} Normal 0.9-2.4 [facility] Comment on above: Order Comment: 1 Performed By: #### L 500.4050, L100.0100, L504.2610 #### [facility] [address] [place], [address] ALK P 99 U/L Normal 45-117 [facility] Comment on above: Order Comment: 1 Performed By: #### L 500.4050, L100.0100, L504.2610 #### [facility] [address] [place], [address] ALT [Catalytic activity/Vol] 23 U/L Normal 13-56 [facility] Comment on above: Order Comment: 1 Performed By: #### L 500.4050, L100.0100, L504.2610 #### [facility] [address] [place], [address] AST [Catalytic activity/Vol] 14 U/L Low 15-37 [facility] Comment on above: Order Comment: 1 Performed By: #### L 500.4050, L100.0100, L504.2610 #### [facility] [address] [place], [address] Bilirubin [Mass/Vol] 0.40 mg/dL Normal 0.20-1.00 [facility] Comment on above: Order Comment: 1 Result Comment: For patients on eltrombopag therapy, use of Dimension [place] TBIL is not recommended. Performed By: #### L 500.4050, L100.0100, L504.2610 #### [facility] [address] [place], [address] BUN/CRE 16.0 RATIO Normal 10-20 [facility] Comment on above: Order Comment: 1 Performed By: #### L 500.4050, L100.0100, L504.2610 #### [facility] [address] [place], [address] CA,Total 9.7 mg/dL Normal 8.5-10.1 [facility] Comment on above: Order Comment: 1 Performed By: #### L 500.4050, L100.0100, L504.2610 #### [facility] [address] [place], [address] Chloride [Moles/Vol] 110 mmol/L High 98-107 [facility] Comment on above: Order Comment: 1 Performed By: #### L 500.4050, L100.0100, L504.2610 #### [facility] [address] [place], [address] CO2 [Moles/Vol] 27.0 mmol/L Normal 21.0-32.0 [facility] Comment on above: Order Comment: 1 Performed By: #### L 500.4050, L100.0100, L504.2610 #### [facility] [address] [place], [address] Creatinine [Mass/Vol] 0.62 mg/dL Normal 0.55-1.02 [facility] Comment on above: Order Comment: 1 Result Comment: The validity of the calculated GFR GFRAA in patients over 70 years has not been determined. Clinical correlation is essential. Performed By: #### L 500.4050, L100.0100, L504.2610 #### [facility] [address] [place], [address] ECRCL 81.24 ml/min Normal [facility] Comment on above: Order Comment: 1 Performed By: #### L 500.4050, L100.0100, L504.2610 #### [facility] [address] [place], [address] EST GFR - AA 124 mL/min Normal >60 [facility] Comment on above: Order Comment: 1 Result Comment: Afri can Belarusian GFR Calc Performed By: #### L 500.4050, L100.0100, L504.2610 #### [facility] [address] [place], [address] GAP 1 Low 5-15 [facility] Comment on above: Order Comment: 1 Performed By: #### L 500.4050, L100.0100, L504.2610 #### [facility] [address] [place], [address] GFR/1.73 sq M.predicted among non-blacks MDRD (S/P/Bld) [Vol rate/Area] 103 mL/min/{1.73_m2} Normal >60 [facility] Comment on above: Order Comment: 1 Result Comment: Non- GFR Calc Performed By: #### L 500.4050, L100.0100, L504.2610 #### [facility] [address] [place], [address] Globulin (S) [Mass/Vol] 3.7 g/dL Normal 2.2-4.2 [facility] Comment on above: Order Comment: 1 Performed By: #### L 500.4050, L100.0100, L504.2610 #### [facility] [address] [place], [address] Glucose [Mass/Vol] 95 mg/dL Normal 74-106 [facility] Comment on above: Order Comment: 1 Performed By: #### L 500.4050, L100.0100, L504.2610 #### [facility] [address] [place], [address] Potassium [Moles/Vol] 4.2 mmol/L Normal 3.5-5.1 [facility] Comment on above: Order Comment: 1 Performed By: #### L 500.4050, L100.0100, L504.2610 #### [facility] [address] [place], [address] Sodium [Moles/Vol] 138 mmol/L Normal 136-145 [facility] Comment on above: Order Comment: 1 Performed By: #### L 500.4050, L100.0100, L504.2610 #### [facility] [address] [place], [address] T PROT 7.6 g/dL Normal 6.4-8.2 [facility] Comment on above: Order Comment: 1 Performed By: #### L 500.4050, L100.0100, L504.2610 #### [facility] [address] [place], [address] Urea nitrogen [Mass/Vol] 10 mg/dL Normal 7-18 [facility] Comment on above: Order Comment: 1 Performed By: #### L 500.4050, L100.0100, L504.2610 #### [facility] [address] [place], [address] LDHon 12-16-2022 LDH 175 U/L Normal 84-246 [facility] Comment on above: Order Comment: 1 Performed By: #### L 500.4050, L100.0100, L504.2610 ####[facility] [address] [place], [address] Oncology Visit Reporton 11-27 Oncology Visit Report [facility] [address] [place] [address] OFFICE VISIT Date of Service: 12/16/22 1116 MR#: [id number] Acct: [id number] Name: MILLA KEY Rep #: [id number] : 1960 From: Trell Priest MD Age/Sex: 62/F Location: [facility] Status: Signed HPI Subjective Date of Service 12/16/22 Chief Complaint F/u for leukocytosis. History of Present Illness 62y.o.woman was found to have a circumscribed rash on the sole of the right foot. She was given steroid injection and topical cream in June 2022. She was found to have increased white cell count and referred for evaluation. The rash on the right sole was biopsied and it showed Psoriasis. She was thought to have reactive Leukocytosis, on observation, using steroid cream for her foot. Comes for follow up. [facility] Medical History Arthritis of both hips Fibroid uterus Pustular psoriasis Social History household members: spouse Smoking Status: Current some day smoker tobacco type: cigarettes alcohol intake: current alcohol intake frequency: holidays/special occasions only Alcohol type: beer substance use type: does not use Intake Vital Signs 11/18/22 13:10 12/16/22 11:17 Height 5 ft 4 in 5 ft 4 in Weight: 59.874 kg BMI 22.6 BP 106/71 Blood Pressure Location Lt brachial Position Sitting Respiration 17 Pulse 96 Pulse Source Monitor Temp 98.7 F Temperature Source Temporal Artery Pulse Oximetry (%) 99 Oxygen Delivery Method room air 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 boulardii)) 250 mg PO DAILY 10/19/22 [History Confirmed 12/16/22] apremilast 10 mg (4)-20 mg (4)-30 mg (47) tablets in a dose pack (Otezla Starter) See Rx Instructions PO PER PKG DIR 10/19/22 [History Confirmed 12/16/22] ciprofloxacin HCl 250 mg tablet 250 mg PO DAILY PRN 10/19/22 [History Confirmed 12/16/22] clobetasol 0.05 % topical ointment 1 applic topical DAILY 10/19/22 [History Confirmed 12/16/22] tapinarof 1 % topical cream (Vtama) 1 applic topical BID-QID 10/19/22 [History Confirmed 12/16/22] Central Venous Access Central Venous Access: No Laboratory Tests 11/18/22 12/16/22 12:45 10:32 WBC 14.0 H 12.0 H Hgb 14.2 14.4 Hct 42.7 43.1 Plt Count 300 324 Absolute Neuts (auto) 9.4 H 7.8 H Exam Physical Exam Const alert, oriented x3 and no apparent distress Coding Level of Care Code Off vis,est,level 3 Exam Problem Focused Diagnoses Other elevated white blood cell (WBC) count D72.828 Leukocytosis type: other Scaly patch rash R21 Assessment and Plan Assessment and Plan (1) Leukocytosis: Status: Acute Qualifiers: Leukocytosis type: other Qualified Code(s): D72.828 - Other elevated white blood cell count Comment: With neutrophilia, no premature cells since August 2022. She has had Kenalog injection to the foot and that can cause leukocytosis. Neutrophils today is 7.8. Decreasing. Topical steroids may cause slight increase in white cells. Plan: To continue observation, monitor Neutrophils. (2) Scaly patch rash: Status: Acute Comment: 3cm patchy scaly rash on sole of R foot, posterior aspects, on topical steroid. Has had Kenalog injection of the area. Biopsy shows Psoriasis Plan: To continue steroid therapy. Plan Details Follow Up: 6 Months 12/16/22 1159 Date Trell Priest MD [facility] Signature: Date (if applicable) CC: Normal [facility] CBC W/Diff, Automatedon 08-2 Absolute Lymph 3.18 X10 3/uL Normal 0.83-4.51 [facility] Comment on above: Performed By: #### L 100.0100, L500.4050, L504.2610 #### [facility] [address] [place], [place], [address] Absolute Neut 9.4 X10 3/uL High 2.0-7.7 [facility] Comment on above: Performed By: #### L 100.0100, L500.4050, L504.2610 #### [facility] [address] [place], [address] Basophils/100 WBC (Bld) 0.6 % Normal 0-1 [facility] Comment on above: Performed By: #### L 100.0100, L500.4050, L504.2610 #### [facility] [address] [place], [address] Eosinophils/100 WBC (Bld) 4.2 % Normal 0-5 [facility] Comment on above: Performed By: #### L 100.0100, L500.4050, L504.2610 #### [facility] [address] [place], [address] Erythrocyte distribution width (RBC) [Ratio] 13.2 % Normal 11.6-14.6 [facility] Comment on above: Performed By: #### L 100.0100, L500.4050, L504.2610 #### [facility] [address] [place], [address] Hematocrit (Bld) [Volume fraction] 42.7 % Normal 37-47 [facility] Comment on above: Performed By: #### L 100.0100, L500.4050, L504.2610 #### [facility] [address] [place], [address] Hemoglobin (Bld) [Mass/Vol] 14.2 g/dL Normal 12.0-15.0 [facility] Comment on above: Performed By: #### L 100.0100, L500.4050, L504.2610 #### [facility] [address] [place], [address] IG% 0.200 Normal 0.0-0.9 [facility] Comment on above: Result Comment: IG% - Immature Granulocytes (promyelocytes, myelocytes and metamyelocytes) > 1% indicates that a LEFT SHIFT is Present. Performed By: #### L 100.0100, L500.4050, L504.2610 #### [facility] [address] [place], [address] Lymphocytes/100 WBC (Bld) 22.7 % Normal 19-41 [facility] Comment on above: Performed By: #### L 100.0100, L500.4050, L504.2610 #### [facility] [address] [place], [address] MCH (RBC) [Entitic mass] 31.8 pg Normal 27.0-32.0 [facility] Comment on above: Performed By: #### L 100.0100, L500.4050, L504.2610 #### [facility] [address] [place], [address] MCHC (RBC) [Mass/Vol] 33.3 g/dL Normal 32-36 [facility] Comment on above: Performed By: #### L 100.0100, L500.4050, L504.2610 #### [facility] [address] [place], [address] MCV (RBC) [Entitic vol] 95.7 fL Normal 81-99 [facility] Comment on above: Performed By: #### L 100.0100, L500.4050, L504.2610 #### [facility] [address] [place], [address] Monocytes/100 WBC (Bld) 4.9 % Normal 0-10 [facility] Comment on above: Performed By: #### L 100.0100, L500.4050, L504.2610 #### [facility] [address] [place], [address] Neutrophils/100 WBC (Bld) 67.4 % Normal 47-70 [facility] Comment on above: Performed By: #### L 100.0100, L500.4050, L504.2610 #### [facility] [address] [place], [address] Nucleated RBC (Bld) [#/Vol] 0 10*3/uL Normal 0-5 [facility] Comment on above: Performed By: #### L 100.0100, L500.4050, L504.2610 #### [facility] [address] [place], [address] Platelet mean volume (Bld) [Entitic vol] 9.1 fL Normal 6.2-12.0 [facility] Comment on above: Performed By: #### L 100.0100, L500.4050, L504.2610 #### [facility] [address] [place], [address] Platelets (Bld) [#/Vol] 300 10*3/uL Normal 150-450 [facility] Comment on above: Performed By: #### L 100.0100, L500.4050, L504.2610 #### [facility] [address] [place], [address] RBC (Bld) [#/Vol] 4.46 10*6/uL Normal 4.2-5.4 [facility] Comment on above: Performed By: #### L 100.0100, L500.4050, L504.2610 #### [facility] [address] [place], [address] RDW SD 46.6 fl High 35.1-43.9 [facility] Comment on above: Performed By: #### L 100.0100, L500.4050, L504.2610 #### [facility] [address] [place], [address] WBC (Bld) [#/Vol] 14.0 10*3/uL High 4.4-11.0 [facility] Comment on above: Performed By: #### L 100.0100, L500.4050, L504.2610 #### [facility] [address] [place], [address] CRPon 11-18-2022 C-REACTIVE PROT < 2.90 Normal 0.0-3.0 [facility] Comment on above: Result Comment: C-Re active Protein (CRP) provides useful information for the diagnosis, therapy and monitoring of inflammatory processes and associated diseases. For the evaluation of Relative Risk for Cardiovascular Disease, a High Sensitivity CRP (HSCRP) should be ordered. Performed By: #### L 501.6710, L101.9900 #### [facility] [address] [place], [address] Comprehensive Metabolic Prof ilon 11-18-2022 Albumin [Mass/Vol] 3.6 g/dL Normal 3.2-5.0 [facility] Comment on above: Order Comment: 1 Performed By: #### L 100.0100, L500.4050, L504.2610 #### [facility] [address] [place], [address] Albumin/Globulin [Mass ratio] 0.9 {ratio} Normal 0.9-2.4 [facility] Comment on above: Order Comment: 1 Performed By: #### L 100.0100, L500.4050, L504.2610 #### [facility] [address] [place], [address] ALK P 103 U/L Normal 45-117 [facility] Comment on above: Order Comment: 1 Performed By: #### L 100.0100, L500.4050, L504.2610 #### [facility] [address] [place], [address] ALT [Catalytic activity/Vol] 35 U/L Normal 13-56 [facility] Comment on above: Order Comment: 1 Performed By: #### L 100.0100, L500.4050, L504.2610 #### [facility] [address] [place], [address] AST [Catalytic activity/Vol] 23 U/L Normal 15-37 [facility] Comment on above: Order Comment: 1 Performed By: #### L 100.0100, L500.4050, L504.2610 #### [facility] [address] [place], [address] Bilirubin [Mass/Vol] 0.30 mg/dL Normal 0.20-1.00 [facility] Comment on above: Order Comment: 1 Result Comment: For patients on eltrombopag therapy, use of Dimension [place] TBIL is not recommended. Performed By: #### L 100.0100, L500.4050, L504.2610 #### [facility] [address] [place], [address] BUN/CRE 19.8 RATIO Normal 10-20 [facility] Comment on above: Order Comment: 1 Performed By: #### L 100.0100, L500.4050, L504.2610 #### [facility] [address] [place], [address] CA,Total 9.6 mg/dL Normal 8.5-10.1 [facility] Comment on above: Order Comment: 1 Performed By: #### L 100.0100, L500.4050, L504.2610 #### [facility] [address] [place], [address] Chloride [Moles/Vol] 108 mmol/L High 98-107 [facility] Comment on above: Order Comment: 1 Performed By: #### L 100.0100, L500.4050, L504.2610 #### [facility] [address] [place], [address] CO2 [Moles/Vol] 28.0 mmol/L Normal 21.0-32.0 [facility] Comment on above: Order Comment: 1 Performed By: #### L 100.0100, L500.4050, L504.2610 #### [facility] [address] [place], [address] Creatinine [Mass/Vol] 0.76 mg/dL Normal 0.55-1.02 [facility] Comment on above: Order Comment: 1 Result Comment: The validity of the calculated GFR GFRAA in patients over 70 years has not been determined. Clinical correlation is essential. Performed By: #### L 100.0100, L500.4050, L504.2610 #### [facility] [address] [place], [address] ECRCL 66.28 ml/min Normal [facility] Comment on above: Order Comment: 1 Performed By: #### L 100.0100, L500.4050, L504.2610 #### [facility] [address] [place], [address] EST GFR - AA 100 mL/min Normal >60 [facility] Comment on above: Order Comment: 1 Result Comment: Afri can Belarusian GFR Calc Performed By: #### L 100.0100, L500.4050, L504.2610 #### [facility] [address] [place], [address] GAP 4 Low 5-15 [facility] Comment on above: Order Comment: 1 Performed By: #### L 100.0100, L500.4050, L504.2610 #### [facility] [address] [place], [address] GFR/1.73 sq M.predicted among non-blacks MDRD (S/P/Bld) [Vol rate/Area] 82 mL/min/{1.73_m2} Normal >60 [facility] Comment on above: Order Comment: 1 Result Comment: Non- GFR Calc Performed By: #### L 100.0100, L500.4050, L504.2610 #### [facility] [address] [place], [address] Globulin (S) [Mass/Vol] 3.8 g/dL Normal 2.2-4.2 [facility] Comment on above: Order Comment: 1 Performed By: #### L 100.0100, L500.4050, L504.2610 #### [facility] [address] [place], [address] Glucose [Mass/Vol] 132 mg/dL High 74-106 [facility] Comment on above: Order Comment: 1 Result Comment: Fast ing Glucose result greater than or equal to 126 mg/dL suggests DIABETES MELLITUS per A.D.A. criteria. Performed By: #### L 100.0100, L500.4050, L504.2610 #### [facility] [address] [place], [address] Potassium [Moles/Vol] 4.0 mmol/L Normal 3.5-5.1 [facility] Comment on above: Order Comment: 1 Performed By: #### L 100.0100, L500.4050, L504.2610 #### [facility] [address] [place], [address] Sodium [Moles/Vol] 140 mmol/L Normal 136-145 [facility] Comment on above: Order Comment: 1 Performed By: #### L 100.0100, L500.4050, L504.2610 #### [facility] [address] [place], [address] T PROT 7.4 g/dL Normal 6.4-8.2 [facility] Comment on above: Order Comment: 1 Performed By: #### L 100.0100, L500.4050, L504.2610 #### [facility] [address] [place], [address] Urea nitrogen [Mass/Vol] 15 mg/dL Normal 7-18 [facility] Comment on above: Order Comment: 1 Performed By: #### L 100.0100, L500.4050, L504.2610 #### [facility] [address] [place], [address] Erythrocyte Sed Rateon 11-18 SED RATE 3 mm/hr Normal 0-30 [facility] Comment on above: Performed By: #### L 501.6710, L101.9900 #### [facility] [address] [place], [address] LDHon 11-18-2022 LDH 216 U/L Normal 84-246 [facility] Comment on above: Order Comment: 1 Performed By: #### L 100.0100, L500.4050, L504.2610 #### [facility] [address] [place], [address] Oncology Visit Reporton 10-27 Oncology Visit Report [facility] [address] [place] [address] OFFICE VISIT Date of Service: 11/18/22 1306 MR#: [id number] Acct: [id number] Name: MILLA KEY Rep #: [id number] : 1960 From: Trell Priest MD Age/Sex: 62/F Location: [facility] Status: Signed HPI Subjective Date of Service 11/18/22 Chief Complaint F/u for leukocytosis. History of Present Illness 62y.o.woman was found to have a circumscribed rash on the sole of the right foot. She was given steroid injection and topical cream in June 2022. She was found to have increased white cell count and referred for evaluation. Had blood work and comes for follow up. She feels well, the rash on the right sole was biopsed and it showed Lichen sclerosis. . [facility]LY [facility] Medical History Arthritis of both hips Fibroid uterus Pustular psoriasis Social History household members: spouse Smoking Status: Current some day smoker tobacco type: cigarettes alcohol intake: current alcohol intake frequency: holidays/special occasions only Alcohol type: beer substance use type: does not use Intake Vital Signs 10/19/22 08:33 11/18/22 13:08 11/18/22 13:10 Height 5 ft 4 in 5 ft 4 in 5 ft 4 in Weight: 60.781 kg 61.49 kg BMI 23.0 23.2 BP 153/88 H 147/84 H Blood Pressure Location Lt brachial Lt brachial Position Sitting Sitting Respiration 16 18 Pulse 81 90 Pulse Source Monitor Monitor Temp 97.5 F L 99.1 F Temperature Source Temporal Artery Temporal Artery Pulse Oximetry (%) 98 99 Oxygen Delivery Method room air Intake Is patient in pain?: No Allergies cephalexin [From Keflex] Adverse Reaction (Verified 11/18/22 13:07) Hives sulfamethoxazole [From Septra] Adverse Reaction (Verified 11/18/22 13:07) Hives trimethoprim [From Novra] Adverse Reaction (Verified 11/18/22 13:07) Hives Medications adrenal cortex (porcine) 80 mg tablet mg PO 10/18/22 [History Confirmed 11/18/22] magnesium amino acid chelate 100 mg tablet mg PO 10/18/22 [History Confirmed 11/18/22] omega 1-qwo-ypq-fish oil 300 mg-1,000 mg capsule (Fish Oil) 1 cap PO DAILY 10/18/22 [History Confirmed 11/18/22] Saccharomyces boulardii 250 mg capsule (Daily Probiotic (S. boulardii)) 250 mg PO DAILY 10/19/22 [History Confirmed 11/18/22] apremilast 10 mg (4)-20 mg (4)-30 mg (47) tablets in a dose pack (Otezla Starter) See Rx Instructions PO PER PKG DIR 10/19/22 [History Confirmed 11/18/22] ciprofloxacin HCl 250 mg tablet 250 mg PO DAILY PRN 10/19/22 [History Confirmed 11/18/22] clobetasol 0.05 % topical ointment 1 applic topical DAILY 10/19/22 [History Confirmed 11/18/22] herbal tea PO DAILY inflamation 10/19/22 [History Confirmed 11/18/22] tapinarof 1 % topical cream (Vtama) 1 applic topical BID-QID 10/19/22 [History Confirmed 11/18/22] Laboratory Tests 11/18/22 12:45 WBC 14.0 H Hgb 14.2 Hct 42.7 Plt Count 300 Absolute Neuts (auto) 9.4 H Exam Physical Exam Const alert, oriented x3 and no apparent distress Coding Level of Care Code Off vis,est,level 3 Exam Problem Focused Diagnoses Other elevated white blood cell (WBC) count D72.828 Leukocytosis type: other Scaly patch rash R21 Assessment and Plan Assessment and Plan (1) Leukocytosis: Status: Acute Qualifiers: Leukocytosis type: other Qualified Code(s): D72.828 - Other elevated white blood cell count Comment: With neutrophilia, no premature cells since August 2022. She has had Kenalog injection to the foot and that can cause leukocytosis. Neutrophils today is 9.4. She started herbal tea before leukocytosis was noticed. She wants to stop it and see what happens. Plan: To repeat Blood work and do observation. (2) Scaly patch rash: Status: Acute Comment: 3cm patchy scaly rash on sole of R foot, posterior aspects, on topical steroid. Has had Kenalog injection of the area. Biopsy shows Lichen sclerosis. Plan: To continue steroid therapy. Plan Details Follow Up: 1 Month 11/18/22 1338 Date Trell Arias Signature: Date (if applicable) CC: [employer] DIRECTOR-C Fabrice Birch Normal [facility] CBC W/Diff, Automatedon 09-26 Absolute Lymph 2.31 X10 3/uL Normal 0.83-4.51 [facility] Comment on above: Performed By: #### L 506.0250, L100.0100, L504.2610, L501.2300, L503.6550, L501.5200, L503.6030, L503.0105, L500.4050 ####[facility] [address] [place], [address] Absolute Neut 9.9 X10 3/uL High 2.0-7.7 [facility] Comment on above: Performed By: #### L 506.0250, L100.0100, L504.2610, L501.2300, L503.6550, L501.5200, L503.6030, L503.0105, L500.4050 ####[facility] [address] [place], [address] Basophils/100 WBC (Bld) 0.6 % Normal 0-1 [facility] Comment on above: Performed By: #### L 506.0250, L100.0100, L504.2610, L501.2300, L503.6550, L501.5200, L503.6030, L503.0105, L500.4050 ####[facility] [address] [place], [address] Eosinophils/100 WBC (Bld) 2.8 % Normal 0-5 [facility] Comment on above: Performed By: #### L 506.0250, L100.0100, L504.2610, L501.2300, L503.6550, L501.5200, L503.6030, L503.0105, L500.4050 ####[facility] [address] [place], [address] Erythrocyte distribution width (RBC) [Ratio] 13.4 % Normal 11.6-14.6 [facility] Comment on above: Performed By: #### L 506.0250, L100.0100, L504.2610, L501.2300, L503.6550, L501.5200, L503.6030, L503.0105, L500.4050 ####[facility] [address] [place], [place], [phone] Hematocrit (Bld) [Volume fraction] 43.1 % Normal 37-47 [facility] Comment on above: Performed By: #### L 506.0250, L100.0100, L504.2610, L501.2300, L503.6550, L501.5200, L503.6030, L503.0105, L500.4050 ####[facility] [address] [place], [place], [phone] Hemoglobin (Bld) [Mass/Vol] 13.9 g/dL Normal 12.0-15.0 [facility] Comment on above: Performed By: #### L 506.0250, L100.0100, L504.2610, L501.2300, L503.6550, L501.5200, L503.6030, L503.0105, L500.4050 ####[facility] [address] [place], [address] IG% 0.600 Normal 0.0-0.9 [facility] Comment on above: Result Comment: IG% - Immature Granulocytes (promyelocytes, myelocytes and metamyelocytes) > 1% indicates that a LEFT SHIFT is Present. Performed By: #### L 506.0250, L100.0100, L504.2610, L501.2300, L503.6550, L501.5200, L503.6030, L503.0105, L500.4050 ####[facility] [address] [place], [address] Lymphocytes/100 WBC (Bld) 17.0 % Low 19-41 [facility] Comment on above: Performed By: #### L 506.0250, L100.0100, L504.2610, L501.2300, L503.6550, L501.5200, L503.6030, L503.0105, L500.4050 ####[facility] [address] [place], [address] MCH (RBC) [Entitic mass] 31.2 pg Normal 27.0-32.0 [facility] Comment on above: Performed By: #### L 506.0250, L100.0100, L504.2610, L501.2300, L503.6550, L501.5200, L503.6030, L503.0105, L500.4050 ####[facility] [address] [place], [address] MCHC (RBC) [Mass/Vol] 32.3 g/dL Normal 32-36 [facility] Comment on above: Performed By: #### L 506.0250, L100.0100, L504.2610, L501.2300, L503.6550, L501.5200, L503.6030, L503.0105, L500.4050 ####[facility] [address] [place], [address] MCV (RBC) [Entitic vol] 96.9 fL Normal 81-99 [facility] Comment on above: Performed By: #### L 506.0250, L100.0100, L504.2610, L501.2300, L503.6550, L501.5200, L503.6030, L503.0105, L500.4050 ####[facility] [address] [place], [address] Monocytes/100 WBC (Bld) 6.4 % Normal 0-10 [facility] Comment on above: Performed By: #### L 506.0250, L100.0100, L504.2610, L501.2300, L503.6550, L501.5200, L503.6030, L503.0105, L500.4050 ####[facility] [address] [place], [address] Neutrophils/100 WBC (Bld) 72.6 % High 47-70 [facility] Comment on above: Performed By: #### L 506.0250, L100.0100, L504.2610, L501.2300, L503.6550, L501.5200, L503.6030, L503.0105, L500.4050 ####[facility] [address] [place], [address] Nucleated RBC (Bld) [#/Vol] 0 10*3/uL Normal 0-5 [facility] Comment on above: Performed By: #### L 506.0250, L100.0100, L504.2610, L501.2300, L503.6550, L501.5200, L503.6030, L503.0105, L500.4050 ####[facility] [address] [place], [address] Platelet mean volume (Bld) [Entitic vol] 9.5 fL Normal 6.2-12.0 [facility] Comment on above: Performed By: #### L 506.0250, L100.0100, L504.2610, L501.2300, L503.6550, L501.5200, L503.6030, L503.0105, L500.4050 ####[facility] [address] [place], [address] Platelets (Bld) [#/Vol] 280 10*3/uL Normal 150-450 [facility] Comment on above: Performed By: #### L 506.0250, L100.0100, L504.2610, L501.2300, L503.6550, L501.5200, L503.6030, L503.0105, L500.4050 ####[facility] [address] [place], [address] RBC (Bld) [#/Vol] 4.45 10*6/uL Normal 4.2-5.4 [facility] Comment on above: Performed By: #### L 506.0250, L100.0100, L504.2610, L501.2300, L503.6550, L501.5200, L503.6030, L503.0105, L500.4050 ####[facility] [address] [place], [place], [id number] RDW SD 48.1 fl High 35.1-43.9 [facility] Comment on above: Performed By: #### L 506.0250, L100.0100, L504.2610, L501.2300, L503.6550, L501.5200, L503.6030, L503.0105, L500.4050 ####[facility] [address] [place], [place], [phone] WBC (Bld) [#/Vol] 13.6 10*3/uL High 4.4-11.0 [facility] Comment on above: Performed By: #### L 506.0250, L100.0100, L504.2610, L501.2300, L503.6550, L501.5200, L503.6030, L503.0105, L500.4050 ####[facility] [address] [place], [place], [phone] CRPon 10-19-2022 C-REACTIVE PROT < 2.90 Normal 0.0-3.0 [facility] Comment on above: Result Comment: C-Re active Protein (CRP) provides useful information for the diagnosis, therapy and monitoring of inflammatory processes and associated diseases. For the evaluation of Relative Risk for Cardiovascular Disease, a High Sensitivity CRP (HSCRP) should be ordered. Performed By: #### L 101.9900, L501.6710 ####[facility] [address] [place], [place], [phone] Comprehensive Metabolic Prof ilon 10-19-2022 Albumin [Mass/Vol] 3.7 g/dL Normal 3.2-5.0 [facility] Comment on above: Order Comment: 1N Performed By: #### L 506.0250, L100.0100, L504.2610, L501.2300, L503.6550, L501.5200, L503.6030, L503.0105, L500.4050 ####[facility] [address] [place], [address] Albumin/Globulin [Mass ratio] 1.1 {ratio} Normal 0.9-2.4 [facility] Comment on above: Order Comment: 1N Performed By: #### L 506.0250, L100.0100, L504.2610, L501.2300, L503.6550, L501.5200, L503.6030, L503.0105, L500.4050 ####[facility] [address] [place], [address] ALK P 102 U/L Normal 45-117 [facility] Comment on above: Order Comment: 1N Performed By: #### L 506.0250, L100.0100, L504.2610, L501.2300, L503.6550, L501.5200, L503.6030, L503.0105, L500.4050 ####[facility] [address] [place], [address] ALT [Catalytic activity/Vol] 31 U/L Normal 13-56 [facility] Comment on above: Order Comment: 1N Performed By: #### L 506.0250, L100.0100, L504.2610, L501.2300, L503.6550, L501.5200, L503.6030, L503.0105, L500.4050 ####[facility] [address] [place], [address] AST [Catalytic activity/Vol] 20 U/L Normal 15-37 [facility] Comment on above: Order Comment: 1N Performed By: #### L 506.0250, L100.0100, L504.2610, L501.2300, L503.6550, L501.5200, L503.6030, L503.0105, L500.4050 ####[facility] [address] [place], [address] Bilirubin [Mass/Vol] 0.30 mg/dL Normal 0.20-1.00 [facility] Comment on above: Order Comment: 1N Result Comment: For patients on eltrombopag therapy, use of Dimension [place] TBIL is not recommended. Performed By: #### L 506.0250, L100.0100, L504.2610, L501.2300, L503.6550, L501.5200, L503.6030, L503.0105, L500.4050 ####[facility] [address] [place], [address] BUN/CRE 23.7 RATIO High 10-20 [facility] Comment on above: Order Comment: 1N Performed By: #### L 506.0250, L100.0100, L504.2610, L501.2300, L503.6550, L501.5200, L503.6030, L503.0105, L500.4050 ####[facility] [address] [place], [address] CA,Total 9.5 mg/dL Normal 8.5-10.1 [facility] Comment on above: Order Comment: 1N Performed By: #### L 506.0250, L100.0100, L504.2610, L501.2300, L503.6550, L501.5200, L503.6030, L503.0105, L500.4050 ####[facility] [address] [place], [address] Chloride [Moles/Vol] 110 mmol/L High 98-107 [facility] Comment on above: Order Comment: 1N Performed By: #### L 506.0250, L100.0100, L504.2610, L501.2300, L503.6550, L501.5200, L503.6030, L503.0105, L500.4050 ####[facility] [address] [place], [place], [phone] CO2 [Moles/Vol] 27.0 mmol/L Normal 21.0-32.0 [facility] Comment on above: Order Comment: 1N Performed By: #### L 506.0250, L100.0100, L504.2610, L501.2300, L503.6550, L501.5200, L503.6030, L503.0105, L500.4050 ####[facility] [address] [place], [place], [phone](436) Creatinine [Mass/Vol] 0.72 mg/dL Normal 0.55-1.02 [facility] Comment on above: Order Comment: 1N Result Comment: The validity of the calculated GFR GFRAA in patients over 70 years has not been determined. Clinical correlation is essential. Performed By: #### L 506.0250, L100.0100, L504.2610, L501.2300, L503.6550, L501.5200, L503.6030, L503.0105, L500.4050 ####[facility] [address] [place], [place], [phone] EST GFR - AA 106 mL/min Normal >60 [facility] Comment on above: Order Comment: 1N Result Comment: Afri can Belarusian GFR Calc Performed By: #### L 506.0250, L100.0100, L504.2610, L501.2300, L503.6550, L501.5200, L503.6030, L503.0105, L500.4050 ####[facility] [address] [place], [address] GAP 4 Low 5-15 [facility] Comment on above: Order Comment: 1N Performed By: #### L 506.0250, L100.0100, L504.2610, L501.2300, L503.6550, L501.5200, L503.6030, L503.0105, L500.4050 ####[facility] [address] [place], [address] GFR/1.73 sq M.predicted among non-blacks MDRD (S/P/Bld) [Vol rate/Area] 88 mL/min/{1.73_m2} Normal >60 [facility] Comment on above: Order Comment: 1N Result Comment: Non- GFR Calc Performed By: #### L 506.0250, L100.0100, L504.2610, L501.2300, L503.6550, L501.5200, L503.6030, L503.0105, L500.4050 ####[facility] [address] [place], [place], [phone]([phone] Globulin (S) [Mass/Vol] 3.3 g/dL Normal 2.2-4.2 [facility] Comment on above: Order Comment: 1N Performed By: #### L 506.0250, L100.0100, L504.2610, L501.2300, L503.6550, L501.5200, L503.6030, L503.0105, L500.4050 ####[facility] [address] [place], [place], [phone](322) Glucose [Mass/Vol] 99 mg/dL Normal 74-106 [facility] Comment on above: Order Comment: 1N Performed By: #### L 506.0250, L100.0100, L504.2610, L501.2300, L503.6550, L501.5200, L503.6030, L503.0105, L500.4050 ####[facility] [address] [place], [address] Potassium [Moles/Vol] 4.0 mmol/L Normal 3.5-5.1 [facility] Comment on above: Order Comment: 1N Performed By: #### L 506.0250, L100.0100, L504.2610, L501.2300, L503.6550, L501.5200, L503.6030, L503.0105, L500.4050 ####[facility] [address] [place], [address] Sodium [Moles/Vol] 141 mmol/L Normal 136-145 [facility] Comment on above: Order Comment: 1N Performed By: #### L 506.0250, L100.0100, L504.2610, L501.2300, L503.6550, L501.5200, L503.6030, L503.0105, L500.4050 ####[facility] [address] [place], [place], [phone] T PROT 7.0 g/dL Normal 6.4-8.2 [facility] Comment on above: Order Comment: 1N Performed By: #### L 506.0250, L100.0100, L504.2610, L501.2300, L503.6550, L501.5200, L503.6030, L503.0105, L500.4050 ####[facility] [address] [place], [address] Urea nitrogen [Mass/Vol] 17 mg/dL Normal 7-18 [facility] Comment on above: Order Comment: 1N Performed By: #### L 506.0250, L100.0100, L504.2610, L501.2300, L503.6550, L501.5200, L503.6030, L503.0105, L500.4050 ####[facility] [address] [place], [address] Erythrocyte Sed Rateon 10-19 SED RATE 1 mm/hr Normal 0-30 [facility] Comment on above: Performed By: #### L 101.9900, L501.6710 ####[facility] [address] [place], [place], [address] Ferritinon 10-19-2022 Ferritin [Mass/Vol] 86 ng/mL Normal 8-252 [facility] Comment on above: Order Comment: 1N Performed By: #### L 506.0250, L100.0100, L504.2610, L501.2300, L503.6550, L501.5200, L503.6030, L503.0105, L500.4050 ####[facility] [address] [place], [place], [phone] Folates, (Folic Acid)on 09-26 FOLATES 9.30 ng/mL Normal 3.1-55.4 [facility] Comment on above: Order Comment: 1N Performed By: #### L 506.0250, L100.0100, L504.2610, L501.2300, L503.6550, L501.5200, L503.6030, L503.0105, L500.4050 ####[facility] [address] [place], [place], [phone] Iron+Iron Binding Capacityon 10-19-2022 Iron [Mass/Vol] 124 ug/dL Normal 50-170 [facility] Comment on above: Order Comment: 1N Performed By: #### L 506.0250, L100.0100, L504.2610, L501.2300, L503.6550, L501.5200, L503.6030, L503.0105, L500.4050 ####[facility] [address] [place], [address] IRON SATURATION 40.5 Normal 15.0-55.0 [facility] Comment on above: Order Comment: 1N Performed By: #### L 506.0250, L100.0100, L504.2610, L501.2300, L503.6550, L501.5200, L503.6030, L503.0105, L500.4050 ####[facility] [address] [place], [address] TIBC 306 ug/dL Normal 250-450 [facility] Comment on above: Order Comment: 1N Performed By: #### L 506.0250, L100.0100, L504.2610, L501.2300, L503.6550, L501.5200, L503.6030, L503.0105, L500.4050 ####[facility] [address] [place], [address] LDHon 10-19-2022 LDH 200 U/L Normal 84-246 [facility] Comment on above: Order Comment: 1N Performed By: #### L 506.0250, L100.0100, L504.2610, L501.2300, L503.6550, L501.5200, L503.6030, L503.0105, L500.4050 ####[facility] [address] [place], [address] Magnesiumon 10-19-2022 Magnesium [Mass/Vol] 2.2 mg/dL Normal 1.6-2.6 [facility] Comment on above: Order Comment: 1N Performed By: #### L 506.0250, L100.0100, L504.2610, L501.2300, L503.6550, L501.5200, L503.6030, L503.0105, L500.4050 ####[facility] [address] [place], [address] Phosphoruson 10-19-2022 Phosphate [Mass/Vol] 3.4 mg/dL Normal 2.5-4.9 [facility] Comment on above: Order Comment: 1N Performed By: #### L 506.0250, L100.0100, L504.2610, L501.2300, L503.6550, L501.5200, L503.6030, L503.0105, L500.4050 ####[facility] [address] [place], [address] Vitamin B12on 10-19-2022 Cobalamin (Vitamin B12) [Mass/Vol] 396 pg/mL Normal 211-911 [facility] Comment on above: Performed By: #### L 506.0250, L100.0100, L504.2610, L501.2300, L503.6550, L501.5200, L503.6030, L503.0105, L500.4050 ####[facility] [address] [place], [address] Oncology Visit Reporton 09-26 Oncology Visit Report [facility] [address] [place] [address] OFFICE VISIT Date of Service: 10/18/22 1611 MR#: [id number] Acct: [id number] Name: MILLA KEY Rep #: [id number] : 1960 From: Trell Priest MD Age/Sex: 62/F Location: [facility] Status: Signed HPI Subjective Date of Service 10/19/22 Chief Complaint Referred for leukocytosis. History of Present Illness 62y.o.woman was found to have a circumscribed rash on the sole of the right foot. She was given steroid injection and topical cream in June 2022. She was found to have increased white cell count and referred for evaluation. She feels well except for the rash on the right sole. [facility] Medical History (Updated 10/19/22 @ 14:[address] Trell Priest MD) Arthritis of both hips Fibroid uterus Pustular psoriasis Social History (Updated 10/19/22 @ 08:33 by Fabrice Key) household members: spouse Smoking Status: Current some day smoker tobacco type: cigarettes alcohol intake: current alcohol intake frequency: holidays/special occasions only Alcohol type: beer substance use type: does not use ROS Constitutional Constitutional: Reports systems reviewed and no addt'l complaints, except as documented Eyes Eyes: Reports systems reviewed and no addt'l complaints, except as documented ENT HEENT: Reports systems reviewed and no addt'l complaints, except as documented Cardiovascular Cardiovascular: Reports systems reviewed and no addt'l complaints, except as documented Respiratory/Chest Respiratory/Chest: Reports systems reviewed and no addt'l complaints, except as documented Gastrointestinal Gastrointestinal: Reports systems reviewed and no addt'l complaints, except as documented Genitourinary Genitourinary: Reports systems reviewed and no addt'l complaints, except as documented Musculoskeletal Musculoskeletal: Reports systems reviewed and no addt'l complaints, except as documented Integumentary Integumentary: Reports systems reviewed and no addt'l complaints, except as documented Neurologic Neurologic: Reports systems reviewed and no addt'l complaints, except as documented Psychiatric Psychiatric: Reports systems reviewed and no addt'l complaints, except as documented Endocrine Endocrinology: Reports systems reviewed and no addt'l complaints, except as documented Hematologic/Lymphatic Hematologic/Lymphatic: Reports systems reviewed and no addt'l complaints, except as documented Allergic/Immunologic Allergic/Immunologic: Reports systems reviewed and no addt'l complaints, except as documented Intake Vital Signs 10/19/22 08:33 Height 5 ft 4 in Weight: 60.781 kg BMI 23.0 BP 153/88 H Blood Pressure Location Lt brachial Position Sitting Respiration 16 Pulse 81 Pulse Source Monitor Temp 97.5 F L Temperature Source Temporal Artery Pulse Oximetry (%) 98 Oxygen Delivery Method room air Intake [employer] Curator Required: No Accompanied by: Is patient in pain?: No Allergies cephalexin [From Keflex] Adverse Reaction (Verified 10/19/22 08:28) Hives sulfamethoxazole [From Septra] Adverse Reaction (Verified 10/19/22 08:28) Hives trimethoprim [From Novra] Adverse Reaction (Verified 10/19/22 08:28) Hives Medications adrenal cortex (porcine) 80 mg tablet mg PO 10/18/22 [History Confirmed 10/18/22] magnesium amino acid chelate 100 mg tablet mg PO 10/18/22 [History Confirmed 10/18/22] omega 9-abz-dnu-fish oil 300 mg-1,000 mg capsule (Fish Oil) 1 cap PO DAILY 10/18/22 [History Confirmed 10/18/22] Saccharomyces boulardii 250 mg capsule (Daily Probiotic (S. boulardii)) 250 mg PO DAILY 10/19/22 [History Confirmed 10/19/22] apremilast 10 mg (4)-20 mg (4)-30 mg (47) tablets in a dose pack (Otezla Starter) See Rx Instructions PO PER PKG DIR 10/19/22 [History Confirmed 10/19/22] ciprofloxacin HCl 250 mg tablet 250 mg PO DAILY PRN 10/19/22 [History Confirmed 10/19/22] clobetasol 0.05 % topical ointment 1 applic topical DAILY 10/19/22 [History Confirmed 10/19/22] herbal tea PO DAILY inflamation 10/19/22 [History] tapinarof 1 % topical cream (Vtama) 1 applic topical BID-QID 10/19/22 [History Confirmed 10/19/22] Central Venous Access Central Venous Access: No Exam Physical Exam Const alert, oriented x3 and no apparent distress HEENT normocephalic, external ears normal and external nose normal Eyes PERRL, EOMs intact bilaterally and conjunctivae normal Neck full ROM and supple Lymph Lymphatic: no lymphadenopathy noted Chest inspection of chest normal Resp normal respiratory effort and clear to auscultation bilaterally Cardio regular rate, regular rhythm, S1 normal heart sound and S2 normal heart sound GI normal to inspection, nondistended, normoactive bowel sounds no CVA tenderness Back/Spine no CVA tenderne (more content not included)... Normal [facility] .Auto Diffon 10-06-2022 Basophil, Absolute 0.1 10 3/mcL Normal 0.0-0.2 [facility] [place] Comment on above: Performed By: #### A DIFF, ANEU, CBC #### [address] [address] Basophils/100 WBC (Bld) 0.6 % Normal 0.0-2.5 [facility] ([place]) Comment on above: Performed By: #### A DIFF, ANEU, CBC #### [address] [address] Eosinophil, Absolute 0.2 10 3/mcL Normal 0.0-0.4 [facility] [place] Comment on above: Performed By: #### A DIFF, ANEU, CBC #### [address] [address] Eosinophils/100 WBC (Bld) 1.1 % Normal 0.0-7.0 [facility] ([place] Comment on above: Performed By: #### A DIFF, ANEU, CBC #### [address] [address] Lymphocyte, Absolute 2.7 10 3/mcL Normal 0.8-3.9 [facility] [place] Comment on above: Performed By: #### A DIFF, ANEU, CBC #### [address] [address] Lymphocytes/100 WBC (Bld) 13.8 % Normal 10.0-50.0 [facility] ([place]) Comment on above: Performed By: #### A DIFF, ANEU, CBC #### [address] [address] Monocyte, Absolute 1.1 10 3/mcL High 0.2-1.0 [facility] [place] Comment on above: Performed By: #### A DIFF, ANEU, CBC #### [address] [address] Monocytes/100 WBC (Bld) 5.7 % Normal 1.7-13.0 [facility] ([place] Comment on above: Performed By: #### A DIFF, ANEU, CBC #### [address] [address] Neutrophils/100 WBC (Bld) 78.8 % Normal 37.0-80.0 [facility] ([place] Comment on above: Performed By: #### A DIFF, ANEU, CBC #### [address] [address] .NEUABSon 10-06-2022 Neutrophil, Absolute 15.6 10 3/mcL High 2.9-6.2 [facility] ([place]) Comment on above: Performed By: #### A DIFF, ANEU, CBC #### [address] [address] CBCon 10-06-2022 Erythrocyte distribution width (RBC) [Ratio] 13.9 % Normal 11.5-14.5 [facility] ([place] Comment on above: Performed By: #### A DIFF, ANEU, CBC #### [address] [address] Hematocrit (Bld) [Volume fraction] 42.1 % Normal 37.0-47.0 [facility] ([place] Comment on above: Performed By: #### A DIFF, ANEU, CBC #### [address] [address] Hgb 13.9 G/dL Normal 12.0-16.0 [facility] ([place] Comment on above: Performed By: #### A DIFF, ANEU, CBC #### [address] [address] MCH (RBC) [Entitic mass] 30.8 pg Normal 27.0-31.2 [facility] ([place] Comment on above: Performed By: #### A DIFF, ANEU, CBC #### [address] [address] MCHC 33.1 G/dL Normal 33.0-37.0 [facility] ([place] Comment on above: Performed By: #### A DIFF, ANEU, CBC #### [address] [address] MCV (RBC) [Entitic vol] 93.2 fL Normal 80.0-94.0 [facility] ([place] Comment on above: Performed By: #### A DIFF, ANEU, CBC #### [address] [address] Platelet 285 10 3/mcL Normal 130-400 [facility] ([place] Comment on above: Performed By: #### A DIFF, ANEU, CBC #### [address] [address] Platelet mean volume (Bld) [Entitic vol] 8.1 fL Normal 7.4-10.4 [facility] ([place] Comment on above: Performed By: #### A DIFF, ANEU, CBC #### [address] [address] RBC 4.52 10 6/mcL Normal 4.20-5.40 [facility] ([place] Comment on above: Performed By: #### A DIFF, ANEU, CBC #### [id number] [place], [place] [address] WBC 19.8 10 3/mcL High 4.6-10.8 [facility] ([place] Comment on above: Performed By: #### A DIFF, ANEU, CBC #### [address] [place], [place] [address] LABORATORYOrdered By: SYSTEM SYSTEM on 10-06-2022 Basophil, Absolute 0.1 103/mcL Invalid Interpretation Code 0.0 - 0.2 10^3/mcL AO Workflow SS Basophils/100 WBC (Bld) 0.6 % Invalid Interpretation Code 0.0 - 2.5 % AO Workflow SS Eosinophil, Absolute 0.2 103/mcL Invalid Interpretation Code 0.0 - 0.4 10^3/mcL AO Workflow SS Eosinophils/100 WBC (Bld) 1.1 % Invalid Interpretation Code 0.0 - 7.0 % AO Workflow SS Erythrocyte distribution width (RBC) [Ratio] 13.9 % Invalid Interpretation Code 11.5 - 14.5 % AO Workflow SS Hematocrit (Bld) [Volume fraction] 42.1 % Invalid Interpretation Code 37.0 - 47.0 % AO Workflow SS Hemoglobin (Bld) [Mass/Vol] 13.9 G/dL Invalid Interpretation Code 12.0 - 16.0 G/dL AO Workflow SS Lymphocyte, Absolute 2.7 103/mcL Invalid Interpretation Code 0.8 - 3.9 10^3/mcL AO Workflow SS Lymphocytes/100 WBC (Bld) 13.8 % Invalid Interpretation Code 10.0 - 50.0 % AO Workflow SS MCH (RBC) [Entitic mass] 30.8 pg Invalid Interpretation Code 27.0 - 31.2 pg AO Workflow SS MCHC 33.1 G/dL Invalid Interpretation Code 33.0 - 37.0 G/dL AO Workflow SS MCV (RBC) [Entitic vol] 93.2 fL Invalid Interpretation Code 80.0 - 94.0 fL AO Workflow SS Monocyte, Absolute 1.1 103/mcL Invalid Interpretation Code 0.2 - 1.0 10^3/mcL AO Workflow SS Monocytes/100 WBC (Bld) 5.7 % Invalid Interpretation Code 1.7 - 13.0 % AO Workflow SS Neutrophil, Absolute 15.6 103/mcL Invalid Interpretation Code 2.9 - 6.2 10^3/mcL AO Workflow SS Neutrophils/100 WBC (Bld) 78.8 % Invalid Interpretation Code 37.0 - 80.0 % AO Workflow SS Platelet mean volume (Bld) [Entitic vol] 8.1 fL Invalid Interpretation Code 7.4 - 10.4 fL AO Workflow SS Platelets (Bld) [#/Vol] 285 103/mcL Invalid Interpretation Code 130 - 400 10^3/mcL AO Workflow SS RBC (Bld) [#/Vol] 4.52 106/mcL Invalid Interpretation Code 4.20 - 5.40 10^6/mcL AO Workflow SS WBC (Bld) [#/Vol] 19.8 103/mcL Invalid Interpretation Code 4.6 - 10.8 10^3/mcL AO Workflow SS ANAon 09-06-2022 Nuclear Ab IF (S) [Titer] 40 {titer} Normal Neg 40 [facility] ([place]) Comment on above: Result Comment: RAISA Screen and Titer methodology is an immunofluorescent technique utilizing Hep2 Substrate. Performed By: #### A NA, RF ####[place] [address]#### ANEU, CBC, CMP, GFR, ADIFF ####[address] [place], [place] [address] US PELVIS NON-OB W/TRANSVAGI NALon 09-06-2022 US PELVIS NON-OB W/TRANSVAGINAL ORIGINAL EXAMINATION: TRANSVAGINAL PELVIC ULTRASOUND 09/03/2022 TECHNIQUE: Transvaginal and transabdominal pelvic ultrasound was performed. COMPARISON: None HISTORY: ORDERING SYSTEM PROVIDED HISTORY: Reason for Exam: pelvic pain and cramping x 3 weeks FINDINGS: Measurements: Uterus: 4.9 x 2.8 x 3.7 cm Endometrial stripe: 2.2 mm Ultrasound Findings: Uterus: At least 2 uterine fibroids measuring 1.4 x 1.4 x 1.2 cm and 1.7 x 1.7 x 1.6 cm. Endometrial stripe: Endometrial stripe is within normal limits. There is a tiny cystic area in the adjacent junctional zone at the fundus. This is a benign finding of no clinical significance that may be related to previous procedure. The ovaries and adnexa are not well visualized due to overlying bowel. Free Fluid: No evidence of free fluid. IMPRESSION: At least 2 small calcified uterine fibroids. Endometrial stripe thickness within normal limits. The ovaries are not seen. I have personally reviewed the images of this examination, agree with resident's findings and interpretation. Interpreted by: Pako Pennington MD Preliminary Report By: Byron David Electronically signed By Pako Pennington MD Dictated Date: 09/06/2022 8:05:00 AM Prelim Date: 09/06/2022 4:07:54 PM Sign Date: 09/06/2022 4:07:54 PM Ordering Provider: FABRICE BIRCH [facility] [place] XR HIP BILATERAL W/PELVIS MA NIMUM 5 VIEWSon 09-06-2022 XR HIP BILATERAL W/PELVIS MINIMUM 5 VIEWS ORIGINAL EXAMINATION: 09/03/2022 1:36 pm ZZ XR pelvis and both hips five views COMPARISON: None HISTORY: ORDERING SYSTEM PROVIDED HISTORY: Reason for Exam: bilateral anterior hip pain, pelvic pain FINDINGS: No acute fracture, dislocation, lytic process or periosteal reaction is seen in the visualized bones and joints. No erosive type of arthritis. No periarticular soft tissue calcification. Symmetric SI joints. Minimal osteoarthritis in both hips with no joint space narrowing or trochanteric enthesopathy. Bilateral dystrophic pelvic calcifications. Mild degenerative pubic symphysis itis. IMPRESSION: No acute skeletal abnormality is seen. . Mild degenerative changes. Interpreted by: Pako Pennington MD Preliminary Report By: Pako Pennington MD Electronically signed By Pako Pennington MD Dictated Date: 09/06/2022 12:26:44 AM Prelim Date: 09/06/2022 12:27:37 AM Sign Date: 09/06/2022 12:27:37 AM Ordering Provider: FABRICE BIRCH [facility] ([place] RFon 09-05-2022 Rheumatoid Factor <6.0 Normal <=6.0 [facility] ([place] Comment on above: Result Comment: RF I gM Antibody by Enzyme Immunoassay: Negative < or = 6 Positive > 6 A positive result indicates the presence of RF antibodies and suggests the possibility of rheumatoid arthritis. A negative result indicates no RF IgM antibody or levels below the negative cut-off of the assay. Results of this assay should be used in conjunction with clinical findings and other serological tests. These results were obtained with the [employer] QUANTA Lite RF IgM ROHITH. RF IgM values obtained with different manufacturers' assay methods may not be used interchangeably. The magnitude of the reported IgM levels cannot be correlated to an endpoint titer. Performed By: #### A NA, RF ####[place] [address]#### ANEU, CBC, CMP, GFR, ADIFF ####[address] [address] .Auto Diffon 09-03-2022 Basophil, Absolute 0.1 10 3/mcL Normal 0.0-0.2 [facility] [place] Comment on above: Performed By: #### A NA, RF #### [place] [address] #### ANEU, CBC, CMP, GFR, ADIFF #### [address] [address] Basophils/100 WBC (Bld) 0.6 % Normal 0.0-2.5 [facility] ([place]) Comment on above: Performed By: #### A NA, RF #### [place] [address] #### ANEU, CBC, CMP, GFR, ADIFF #### [address] [address] Eosinophil, Absolute 0.2 10 3/mcL Normal 0.0-0.4 [facility] [place] Comment on above: Performed By: #### A NA, RF #### [place] [address] #### ANEU, CBC, CMP, GFR, ADIFF #### [address] [address] Eosinophils/100 WBC (Bld) 1.7 % Normal 0.0-7.0 [facility] ([place] Comment on above: Performed By: #### A NA, RF #### [place] [address] #### ANEU, CBC, CMP, GFR, ADIFF #### [address] [address] Lymphocyte, Absolute 3.2 10 3/mcL Normal 0.8-3.9 [facility] [place] Comment on above: Performed By: #### A NA, RF #### [place] [address] #### ANEU, CBC, CMP, GFR, ADIFF #### [address] [address] Lymphocytes/100 WBC (Bld) 23.6 % Normal 10.0-50.0 [facility] ([place] Comment on above: Performed By: #### A NA, RF #### [place] [address] #### ANEU, CBC, CMP, GFR, ADIFF #### [address] [address] Monocyte, Absolute 0.9 10 3/mcL Normal 0.2-1.0 [facility] [place] Comment on above: Performed By: #### A NA, RF #### [place] [address] #### ANEU, CBC, CMP, GFR, ADIFF #### [address] [address] Monocytes/100 WBC (Bld) 6.6 % Normal 1.7-13.0 [facility] ([place] Comment on above: Performed By: #### A NA, RF #### [place] [address] #### ANEU, CBC, CMP, GFR, ADIFF #### [address] [address] Neutrophils/100 WBC (Bld) 67.5 % Normal 37.0-80.0 [facility] ([place] Comment on above: Performed By: #### A NA, RF #### [place] [address] #### ANEU, CBC, CMP, GFR, ADIFF #### [address] [address] .GFRon 09-03-2022 GFR 101 ml/min/1.73sqm Normal [facility] ([place] Comment on above: Result Comment: GFR Population mean for , Non- Americans Ages 20-29 = 116 mL/min/1.73 sq.m. Ages 30-39 = 107 mL/min/1.73 sq.m. Ages 40-49 = 99 mL/min/1.73 sq.m. Ages 50-59 = 93 mL/min/1.73 sq.m. Ages 60-69 = 85 mL/min/1.73 sq.m. Ages 70+ = 75 mL/min/1.73 sq.m. Chronic Kidney Disease: Less than 60 mL/min/1.73 square meters End Stage Renal Disease: Less than 15 mL/min/1.73 square meters Performed By: #### A NA, RF ####[place] [address]#### ANEU, CBC, CMP, GFR, ADIFF ####[address] [place], [place] [address] GFR Non- 84 ml/min/1.73sqm Normal [facility] ([place] Comment on above: Result Comment: GFR Population mean for , Non- Americans Ages 20-29 = 116 mL/min/1.73 sq.m. Ages 30-39 = 107 mL/min/1.73 sq.m. Ages 40-49 = 99 mL/min/1.73 sq.m. Ages 50-59 = 93 mL/min/1.73 sq.m. Ages 60-69 = 85 mL/min/1.73 sq.m. Ages 70+ = 75 mL/min/1.73 sq.m. Chronic Kidney Disease: Less than 60 mL/min/1.73 square meters End Stage Renal Disease: Less than 15 mL/min/1.73 square meters Performed By: #### A NA, RF ####[place] [address]#### ANEU, CBC, CMP, GFR, ADIFF ####[address] [place], [place] [address] .NEUABSon 09-03-2022 Neutrophil, Absolute 9.1 10 3/mcL High 2.9-6.2 [facility] ([place]) Comment on above: Performed By: #### A NA, RF ####[address] [address]#### ANEU, CBC, CMP, GFR, ADIFF ####[address] [address] CBCon 09-03-2022 Erythrocyte distribution width (RBC) [Ratio] 13.6 % Normal 11.5-14.5 [facility] ([place] Comment on above: Performed By: #### A NA, RF #### [address] [address] #### ANEU, CBC, CMP, GFR, ADIFF #### [address] [address] Hematocrit (Bld) [Volume fraction] 43.0 % Normal 37.0-47.0 [facility] ([place] Comment on above: Performed By: #### A NA, RF #### [place] [address] #### ANEU, CBC, CMP, GFR, ADIFF #### [address] [address] Hgb 14.3 G/dL Normal 12.0-16.0 [facility] ([place] Comment on above: Performed By: #### A NA, RF #### [place] [address] #### ANEU, CBC, CMP, GFR, ADIFF #### [address] [address] MCH (RBC) [Entitic mass] 30.7 pg Normal 27.0-31.2 [facility] ([place] Comment on above: Performed By: #### A NA, RF #### [address] [address] #### ANEU, CBC, CMP, GFR, ADIFF #### [address] [address] MCHC 33.2 G/dL Normal 33.0-37.0 [facility] ([place] Comment on above: Performed By: #### A NA, RF #### [address] [address] #### ANEU, CBC, CMP, GFR, ADIFF #### [address] [address] MCV (RBC) [Entitic vol] 92.5 fL Normal 80.0-94.0 [facility] ([place] Comment on above: Performed By: #### A NA, RF #### [address] [address] #### ANEU, CBC, CMP, GFR, ADIFF #### [address] [address] Platelet 294 10 3/mcL Normal 130-400 [facility] ([place] Comment on above: Performed By: #### A NA, RF #### [address] [address] #### ANEU, CBC, CMP, GFR, ADIFF #### [address] [address] Platelet mean volume (Bld) [Entitic vol] 8.3 fL Normal 7.4-10.4 [facility] ([place] Comment on above: Performed By: #### A NA, RF #### [address] [address] #### ANEU, CBC, CMP, GFR, ADIFF #### [address] [address] RBC 4.65 10 6/mcL Normal 4.20-5.40 [facility] ([place] Comment on above: Performed By: #### A NA, RF #### [address] [address] #### ANEU, CBC, CMP, GFR, ADIFF #### [address] [address] WBC 13.5 10 3/mcL High 4.6-10.8 [facility] ([place] Comment on above: Performed By: #### A NA, RF #### [place] [id number] #### ANEU, CBC, CMP, GFR, ADIFF #### [facility] [address] [place], [place] [address] CMPon 09-03-2022 Albumin Level 3.9 G/dL Normal 3.4-4.8 [facility] ([place] Comment on above: Performed By: #### A NA, RF ####[place] [address]#### ANEU, CBC, CMP, GFR, ADIFF ####[facility] [place], [place] [address] Albumin/Globulin [Mass ratio] 1.3 {ratio} Normal 1.1-2.5 [facility] ([place] Comment on above: Performed By: #### A NA, RF ####[place] [address]#### ANEU, CBC, CMP, GFR, ADIFF ####[facility] [place], [place] [address] ALP [Catalytic activity/Vol] 105 U/L Normal 40-135 [facility] ([place] Comment on above: Performed By: #### A NA, RF ####[place] [address]#### ANEU, CBC, CMP, GFR, ADIFF ####[facility] [place], [place] [address] ALT [Catalytic activity/Vol] 27 U/L Normal 14-59 [facility] ([place] Comment on above: Performed By: #### A NA, RF ####[place] [address]#### ANEU, CBC, CMP, GFR, ADIFF ####[facility] [place], [place] [address] AST [Catalytic activity/Vol] 14 U/L Normal 10-40 [facility] ([place]) Comment on above: Performed By: #### A NA, RF ####[place] [address]#### ANEU, CBC, CMP, GFR, ADIFF ####[address] [place], [place] [address] Bili Total 0.4 mg/dL Normal 0.2-1.0 [facility] ([place] Comment on above: Result Comment: Use of this assay is not recommended for patients undergoing treatment with eltrombopag due to the potential for falsely elevated results. Performed By: #### A NA, RF ####[place] [address]#### ANEU, CBC, CMP, GFR, ADIFF ####[address] [place], [place] [address] BUN/Creatinine Ratio 18 ratio Normal 7-27 [facility] [place] Comment on above: Performed By: #### A NA, RF ####[place] [address]#### ANEU, CBC, CMP, GFR, ADIFF ####[address] [place], [place] [address] Calcium [Mass/Vol] 9.7 mg/dL Normal 8.4-10.2 [facility] ([place]) Comment on above: Performed By: #### A NA, RF ####[place] [address]#### ANEU, CBC, CMP, GFR, ADIFF ####[place] [address] [place], [place] [address] Chloride [Moles/Vol] 105 mmol/L Normal 98-107 [facility] [place] Comment on above: Performed By: #### A NA, RF ####[place] [address]#### ANEU, CBC, CMP, GFR, ADIFF ####[address] [place], [place] [address] CO2 [Moles/Vol] 27 mmol/L Normal 23-31 [facility] ([place] Comment on above: Performed By: #### A NA, RF ####[place] [address]#### ANEU, CBC, CMP, GFR, ADIFF ####[address] [place], [place] [address] Creatinine [Mass/Vol] 0.71 mg/dL Normal 0.55-1.02 [facility] ([place]) Comment on above: Performed By: #### A NA, RF ####[address] [address]#### ANEU, CBC, CMP, GFR, ADIFF ####[address] [place], [place] [address] Electrolyte Balance 11.0 mEq/L Normal 4.0-15.0 Counts include 234 beds at the [facility] ([place]) Comment on above: Performed By: #### A NA, RF ####[place] [address]#### ANEU, CBC, CMP, GFR, ADIFF ####[address] [place] [address] Globulin 2.9 G/dL Normal [facility] ([place] Comment on above: Performed By: #### A NA, RF ####[place] [address]#### ANEU, CBC, CMP, GFR, ADIFF ####[address] [place] [address] Glucose [Mass/Vol] 83 mg/dL Normal 80-115 [facility] ([place]) Comment on above: Performed By: #### A NA, RF ####[place] [address]#### ANEU, CBC, CMP, GFR, ADIFF ####[address] [place], [place] [address] Potassium [Moles/Vol] 4.4 mmol/L Normal 3.5-5.1 [facility] ([place] Comment on above: Performed By: #### A NA, RF ####[place] [id number]#### ANEU, CBC, CMP, GFR, ADIFF ####[address] [place], [place] [address] Sodium [Moles/Vol] 143 mmol/L Normal 136-145 [facility] ([place]) Comment on above: Performed By: #### A NA, RF ####[address] [address]#### ANEU, CBC, CMP, GFR, ADIFF ####[address] [place], [place] [address] Total Protein 6.8 G/dL Normal 6.4-8.2 [facility] ([place] Comment on above: Performed By: #### A NA, RF ####[address] [address]#### ANEU, CBC, CMP, GFR, ADIFF ####[facility] [place], [place] [address] Urea nitrogen [Mass/Vol] 13 mg/dL Normal 7-18 [facility] ([place] Comment on above: Performed By: #### A NA, RF ####[address] [address]#### ANEU, CBC, CMP, GFR, ADIFF ####[address] [place], [place] [address] Headlight Adjuster Cytology Reporton 2022 Headlight Adjuster Cytology Report . Pathology Reports Accession: Collected Date/Time: Received Date/Time: Pathologist: [id number] 08/25/2022 08:20 EDT 08/25/2022 18:00 EDT Headlight Adjuster Cytology Report SPECIMEN: Specimen Description: Liquid Prep w/ HPV Specimen: Cervical/Endocervical Screening or Diagnostic: Screening RELEVANT HISTORY: LMP: menopausal SPECIMEN ADEQUACY: SATISFACTORY FOR EVALUATION Endocervical/Transform ational zone component present INTERPRETATION/RESULTS : NEGATIVE FOR INTRAEPITHELIAL LESION OR MALIGNANCY OTHER NON-NEOPLASTIC FINDINGS: Atrophy HIGH RISK HPV TESTING: Event Code Result HPV Interp See Interp HPVN HPV Interp Text: High Risk HPV Typing: NEGATIVE HPV types 16, 18, 31, 33, 35, 39, 45, 51, 52, 56, 58, 59, 66 and 68 DNA were undetectable or below the pre-set threshold. The lucio High-Risk HPV DNA Test is not intended for use as a screening device for Pap normal women under age 30 and is not intended to substitute for regular Pap screening. The lucio High-Risk HPV DNA Test is designed to augment existing methods for the detection of cervical disease and should be used in conjunction with clinical information derived from other diagnostic and screening tests, physical examinations and full medical history in accordance with appropriate patient management procedures. NOTE: A negative result does not preclude the presence of HPV infection because results depend on adequate specimen collection, absence of inhibitors and sufficient DNA to be detected. As of: 09/03/22 10:28 EDT COMMENT: This Pap Test was successfully processed and evaluated with the assistance of the [employer] Test Imaging System. Pathology Reports Accession: Collected Date/Time: Received Date/Time: Pathologist: [id number] 08/25/2022 08:20 EDT 08/25/2022 18:00 EDT Electronically Signed by Pathology report verified by [facility] Screened by: KK Electronically signed by Ksenia KARIMI (ASCP) Sign-Out Date: 09/03/2022 10:29 Performing Lab: [facility], [address] [place] [address] Pathology Dept Disclaimer The Pap test is a screening test for cervical cancer. As evidenced by published data, it is subject to both inherent false negative and false positive results. Your patient's results should be interpreted in context with pertinent clinical history including gynecological examination. Normal [facility] ([place]) HPVon 09-02-2022 HPV Interp Normal See Interp HPVN [facility] ([place] Comment on above: Order Comment: Order placed by AP_HPV_ORDER rule from [id number] Result Comment: High Risk HPV Typing: NEGATIVE HPV types 16, 18, 31, 33, 35, 39, 45, 51, 52, 56, 58, 59, 66 and 68 DNA were undetectable or below the pre-set threshold. The lucio High-Risk HPV DNA Test is not intended for use as a screening device for Pap normal women under age 30 and is not intended to substitute for regular Pap screening. The lucio High-Risk HPV DNA Test is designed to augment existing methods for the detection of cervical disease and should be used in conjunction with clinical information derived from other diagnostic and screening tests, physical examinations and full medical history in accordance with appropriate patient management procedures. NOTE: A negative result does not preclude the presence of HPV infection because results depend on adequate specimen collection, absence of inhibitors and sufficient DNA to be detected. See Interp HPVN Performed By: #### H PV #### [address] [address] HPV Source Cervix Normal [facility] ([place]) Comment on above: Order Comment: Order placed by AP_HPV_ORDER rule from [id number] Performed By: #### H PV #### [address] [address] [place] MAMMOGRAM SCREENING BILAT ERAL W/TOMOon 09-24-2016 MA MAMMOGRAM SCREENING BILATERAL W/COLBY ORIGINALFROM:[address] [address]Uqayi: [phone] PROCEDURE FOR:IMLLA [address] [place], [place] [address]Sfkp: [phone]#: [id number]#: [id number]#: [id number]: 1Age: 55 TO:FABRICE BIRCH MINE SAFETY DIRECTOR-[address] [place], [place] [address] #[id number] DIGITAL SCREENING MAMMOGRAM 3D/2D WITH CAD WITH MEDIOLATERAL OBLIQUE CRANIOCAUDAL: 09/24/2016Comparison is made to exams dated: 09/18/2015 mammogram and 08/21/2014 mammogram - [facility]. The tissue of both breasts is heterogeneously dense. Current study was also evaluated with a Computer Aided Detection (CAD) system. No significant masses, calcifications, or other findings are seen in either breast. There has been no significant interval change. IMPRESSION: NEGATIVEThere is no mammographic evidence of malignancy. A 1 year screening mammogram is recommended. Grayson Luke M.D., F.A.C.R. tbp/penrad:09/24/2016 16:24:07 Prompt Care Rn: GARY Javier)(Esther), [facility] sent: Normal BI-RADS 1&2 Mammogram BI-RADS: 1 Negative Normal [facility] Vital Signs Date Time Vital Sign Value Performing Clinician Suzy sloan 04-18-2024 09:35-0500 Diastolic Blood Pressure Non-Invasive 81 mm[Hg] ESPERANZA JENNIFER DO [facility] 04-18-2024 09:35-0500 Heart rate 80 /min ESPERANZA JENNIFER DO [facility] 04-18-2024 09:35-0500 Respiratory rate 17 /min ESPERANZA JENNIFER DO [facility] 04-18-2024 09:35-0500 Systolic Blood Pressure Non-Invasive 118 mm[Hg] ESPERANZA JENNIFER DO [facility] 04-18-2024 09:23-0500 Body temperature 98.78 [degF] ESPERANZA JENNIFER DO [facility] 04-18-2024 09:23-0500 Diastolic Blood Pressure Non-Invasive 68 mm[Hg] ESPERANZA JENNIFER DO [facility] 04-18-2024 09:23-0500 Heart rate 80 /min ESPERANZA JENNIFER DO [facility] 04-18-2024 09:23-0500 Respiratory rate 18 /min ESPERANZA JENNIFER DO [facility] 04-18-2024 09:23-0500 Systolic Blood Pressure Non-Invasive 110 mm[Hg] ESPERANZA JENNIFER DO [facility] 04-18-2024 09:20-0500 Diastolic Blood Pressure Non-Invasive 77 mm[Hg] ESPERANZA JENNIFER DO [facility] 04-18-2024 09:20-0500 Heart rate 78 /min ESPERANZA JENNIFER DO [facility] 04-18-2024 09:20-0500 Respiratory Rate - Anes 20 br/min ESPERANZA JENNIFER DO [facility] 04-18-2024 09:20-0500 Systolic Blood Pressure Non-Invasive 117 mm[Hg] ESPERANZA JENNIFER DO [facility] 04-18-2024 09:15-0500 Respiratory Rate - Anes 24 br/min ESPERANZA JENNIFER DO [facility] 04-18-2024 09:10-0500 Respiratory Rate - Anes 17 br/min ESPERANZA JENNIFER DO [facility] 04-18-2024 08:05-0500 Body height 162 cm ESPERANZA JENNIFER DO [facility] 04-18-2024 08:05-0500 Body weight 55.6 kg ESPERANZA JENNIFER DO [facility] 04-18-2024 07:58-0500 Body temperature 99.32 [degF] ESPERANZA JENNIFER DO [facility] 04-18-2024 07:58-0500 Heart rate 93 /min ESPERANZA JENNIFER DO [facility] 04-18-2024 07:58-0500 Respiratory rate 12 /min ESPERANZA JENNIFER DO [facility] Encounters Encounter Date Encounter Type Care Provider Facility Start: 08-15-2024 End: 08-19-2024 ambulatory HIMANSHU MIGUEL [facility] Start: 08-15-2024 End: 08-19-2024 Outreach Lab HIMANSHU WHYTE APRN-PICK PACK WORKER [facility] Start: 04-18-2024 End: 04-18-2024 ambulatory ESPERANZA Danny JENNIFER DO Facility:[facility] [place] Start: 04-18-2024 End: 04-18-2024 SAME DAY STAY ESPERANZA RODRIGUEZ DO [facility] Start: 02-09-2024 End: 02-09-2024 ambulatory FABRICE Elly QUETA ONLINE MEDIA DIRECTOR-PICK PACK WORKER Facility:[facility] Start: 02-07-2024 End: 02-07-2024 Patient encounter procedure FABRICE S QUETA ONLINE MEDIA DIRECTOR-PICK PACK WORKER [facility] Start: 06-09-2023 End: 06-09-2023 ambulatory [facility] Facility:[facility] Start: 03-22-2023 End: 03-23-2023 ambulatory FABRICE Elly QUETA ONLINE MEDIA DIRECTOR-PICK PACK WORKER Facility:[facility] Start: 03-22-2023 End: 03-22-2023 Patient encounter procedure FABRICE Elly QUETA ONLINE MEDIA DIRECTOR-PICK PACK WORKER [facility] Start: 12-16-2022 End: 12-16-2022 ambulatory [facility] Facility:[facility] Start: 11-18-2022 End: 11-18-2022 ambulatory [facility] Facility:[facility] Start: 10-19-2022 End: 10-19-2022 ambulatory [facility] Facility:[facility] Start: 10-06-2022 End: 10-07-2022 ambulatory FABRICE Elly QUTEA ONLINE MEDIA DIRECTOR-PICK PACK WORKER Facility:[facility] Start: 10-06-2022 End: 10-06-2022 Patient encounter procedure FABRICE Elly QUETA ONLINE MEDIA DIRECTOR-PICK PACK WORKER [facility] Start: 09-03-2022 End: 09-04-2022 ambulatory FABRICE S QUETA ONLINE MEDIA DIRECTOR-PICK PACK WORKER Facility:[facility] Start: 08-25-2022 End: 08-30-2022 ambulatory FABRICE S QUETA ONLINE MEDIA DIRECTOR-PICK PACK WORKER Facility:[facility] Start: 08-25-2022 End: 08-29-2022 Outreach Lab FABRICE S QUETA ONLINE MEDIA DIRECTOR-PICK PACK WORKER [facility] Start: 03-17-2022 End: 03-17-2022 Patient encounter procedure FABRICE Sanabria QUETA ONLINE MEDIA DIRECTOR-PICK PACK WORKER [facility] Start: 03-04-2021 End: 03-04-2021 Patient encounter procedure FABRICE Sanabria QUETA ONLINE MEDIA DIRECTOR-PICK PACK WORKER [facility] Start: 09-24-2016 End: 09-25-2016 Ambulatory PHY WO ID REFERRING Facility:[facility] [place] Procedures Date Procedure Procedure Detail Performing Clinician Start: 04-18-2024 Colonoscopy ESPERANZA RODRIGUEZ DO Comment on above: 1 POLYP Immunizations Immunization Date Immunization Notes Care Provider Fa annemarie 05-07-2021 SARS-CoV-2 (COVID-19 ) mRNA-1273 vaccine FABRICE BIRCH ONLINE MEDIA DIRECTOR-PICK PACK WORKER [facility] 04-09-2021 SARS-CoV-2 (COVID-19 ) mRNA-1273 vaccine FABRICE BIRCH ONLINE MEDIA DIRECTOR-PICK PACK WORKER [facility] 08-15-2014 tetanus toxoid, redu linsey diphtheria toxoid, and acellular pertussis vaccine, adsorbed FABRICE BIRCH ONLINE MEDIA DIRECTOR-PICK PACK WORKER [facility] Payers Date Payer Category Payer Private Health Insurance [id number] 2024 Unknown [id number] 2022 Self-pay 2013 Unknown [id number] 1960 Unknown [id number] 2.16.8 [id number] 1960 Unknown [id number] 2.16.8 [id number] 1960 Unknown [id number] 2.16.8 [id number] 1960 Unknown [id number] 2.16.8 [id number] 1960 Unknown [id number] 2.16.8 [id number] 1960 Unknown [id number] 2.16.8 [id number] 1960 Unknown [id number] 2.16.8 [id number] Unknown [id number] 2.16.8 [id number] Unknown [id number] 2.16.8 [id number] Unknown [id number] 2.16.8 [id number] Unknown [id number] 2.16.8 [id number] Unknown [id number] 2.16.8 [id number] Social History Date Type Detail Facility Start: 01-17-2020 Never smoked t obacco (finding) [facility] Sex Assigned At Female [facility] Start: 04-04-2024 End: 08-15-2024 Tobacco smoking status Light tobacco smoker (finding) [facility] Sexual Orientation [facility] ospital [facility] Start: 09-20-2018 Sex Female (finding) [facility] Functional Status Date Assessment Result Facility 04-18-2024 Functional Status Sleeps intermittently A [facility] 04-18-2024 Functional Status Maintained [facility] kevin [facility] Mental Status Date Assessment Result Facility 04-18-2024 Mental Status Oriented x 4 [facility] 04-18-2024 Mental Status [facility] Clinical Notes 08-25-2022 to 08-16-2024 Note Date & Type Note Facility 08-16-2024 Note . MICRO - Microbiology PROCEDURE: Urine Culture [*1] SOURCE: Urine, Clean Catch BODY SITE: COLLECTED DATE/TIME: 08/15/2024 13:01 EDT RECEIVED DATE/TIME: 08/15/2024 18:42 EDT START DATE/TIME: 08/15/2024 18:42 EDT FREE TEXT SOURCE: FINAL REPORTS Final Report [] Verified Date/Time/Personnel: 08/16/2024 14:22 EDT 50,000 - 100,000 cfu/ml Multiple bacterial morphotypes present. Probable Contamination. Suggest recollection if clinically indicated. PRELIMINARY REPORTS Preliminary Report [] Verified Date/Time/Personnel: 08/15/2024 19:59 EDT Specimen received in lab. Performing Locations *1: This test was performed at: [facility], [address] [place] [address], [facility] , [facility] 04-18-2024 Evaluation + Plan note Extrac ismael from: Title:Clinical Document Author:ESPERANZA RODRIGUEZ ate:04/18/24 DRAPER ADMISSION HISTORY AN D PHYSICIAL CHIEF COMPLAINT: Colorectal cancer screening, positive Cologuard HISTORY OF PRESENT ILLNESS: Positive Cologuard REVIEW OF SYSTEMS: Constitutional: denies weight loss Cardiovascular:denies chest pain, palpitations Respiratory:denies shortness of breath Gastrointestinal:no abd pain Musculoskeletal: no arthralgias Skin: no rashes ACTIVE PROBLEMS: (7) Positive colorectal cancer screening using Cologuard test (9955213612) Recurrent UTI (365195740) Screening for breast cancer (130760973) Screening for cervical cancer (9754645388) Screening for colon cancer (132086582) Tobacco use (9613603450) Well adult exam (264232862) MEDICATIONS: Active Inpt Meds: None Active PRN Meds: None One Time Meds: None Active IV Meds: None ALLERGIES: (2) Keflex Septra FAMILY HISTORY: SOCIAL HISTORY: PHYSICAL EXAM: VITALS: No Data Available 24 Hr Tmax: No Data Available 36 Hr Tmax: No Data Available Vital Signs are the last 5 in the past 48 hours. Weights display the last 5 within 7 days. Initial Wt: No Data Available Current Wt: No Data Available physical exam alert and oriented cardio; regular without murmur pulm; clear abd; soft, nontender LABS: No 36hr Lab Data DIAGNOSTICS: IMPRESSION: Positive Cologuard PLAN: Colonoscopy as discussed in the office [facility] 01-22-2025 Hospital Discharge instructions Patient Education 04/18/2024 09:29:32 Nausea and Vomiting, Adult Nausea and Vomiting, Adult Nausea is the feeling that you have an upset stomach or that you are about to vomit. Vomiting is when stomach contents are thrown up and out of the mouth as a result of nausea. Vomiting can make you feel weak and cause you to become dehydrated. Dehydration can make you feel tired and thirsty, cause you to have a dry mouth, and decrease how often you urinate. Older adults and people with other diseases or a weak disease-fighting system (immune system) are at higher risk for dehydration. It is important to treat your nausea and vomiting as told by your health care provider. Follow these instructions at home: Watch your symptoms for any changes. Tell your health care provider about them. Follow these instructions to care for yourself at home. Eating and drinking Take an oral rehydration solution (ORS). This is a drink that is sold at pharmacies and retail stores. Drink clear fluids slowly and in small amounts as you are able. Clear fluids include water, ice chips, low-calorie sports drinks, and fruit juice that has water added (diluted fruit juice). Eat bland, qoyg-tv-llmxji foods in small amounts as you are able. These foods include bananas, applesauce, rice, lean meats, toast, and crackers. Avoid fluids that contain a lot of sugar or caffeine, such as energy drinks, sports drinks, and soda. Avoid alcohol. Avoid spicy or fatty foods. General instructions Take zvgb-hkh-epxpylh and prescription medicines only as told by your health care provider. Drink enough fluid to keep your urine pale yellow. Wash your hands often using soap and water. If soap and water are not available, use hand service greeter. Make sure that all people in your household wash their hands well and often. Rest at home while you recover. Watch your condition for any changes. Breathe slowly and deeply when you feel nauseated. Keep all follow-up visits as told by your health care provider. This is important. Contact a health care provider if: Your symptoms get worse. You have new symptoms. You have a fever. You cannot drink fluids without vomiting. Your nausea does not go away after 2 days. You feel light-headed or dizzy. You have a headache. You have muscle cramps. You have a rash. You have pain while urinating. Get help right away if: You have pain in your chest, neck, arm, or jaw. You feel extremely weak or you faint. You have persistent vomiting. You have vomit that is bright red or looks like black coffee grounds. You have bloody or black stools or stools that look like tar. You have a severe headache, a stiff neck, or both. You have severe pain, cramping, or bloating in your abdomen. You have difficulty breathing, or you are breathing very quickly. Your heart is beating very quickly. Your skin feels cold and clammy. You feel confused. You have signs of dehydration, such as: ?Dark urine, very little urine, or no urine. ?Cracked lips. ?Dry mouth. ?Sunken eyes. ?Sleepiness. ?Weakness. These symptoms may represent a serious problem that is an emergency. Do not wait to see if the symptoms will go away. Get medical help right away. Call your local emergency services (911 in the [place] Do not drive yourself to the hospital. Summary Nausea is the feeling that you have an upset stomach or that you are about to vomit. As nausea getsworse, it can lead to vomiting. Vomiting can make you feel weak and cause you to become dehydrated. Follow instructions from your health care provider about eating and drinking to prevent dehydration. Take xmub-rvh-ymtdofu and prescription medicines only as told by your health care provider. Contact your health care provider if your symptoms get worse, or you have new symptoms. Keep all follow-up visits as told by your health care provider. This is important. This information is not intended to replace advice given to you by your health care provider. Make sure you discuss any questions you have with your health care provider. Document Released: 03/14/2006 Document Revised: 07/06/2019 Document Reviewed: 08/22/2018 [employer] Patient Education 2020 [employer]. 04/18/2024 09:29:22 Colonoscopy, Adult, Care After Colonoscopy, Adult, Care After This sheet gives you information about how to care for yourself after your procedure. Your health care provider may also give you more specific instructions. If you have problems or questions, contact your health care provider. What can I expect after the procedure? After the procedure, it is common to have: A small amount of blood in your stool for 24 hours after the procedure. Some gas. Mild abdominal cramping or bloating. Follow these instructions at home: General instructions For the first 24 hours after the procedure: ?Do not drive or use machinery. ?Do not sign important documents. ?Do not drink alcohol. ?Do your regular daily activities at a slower pace than normal. ?Eat soft, ufre-qt-xecknm foods. Take hrgw-uyv-bznbfwh or prescription medicines only as told by your health care provider. Relieving cramping and bloating Try walking around when you have cramps or feel bloated. Apply heat to your abdomen as told by your health care provider. Use a heat source that your healthcare provider recommends, such as a moist heat pack or a heating pad. ?Place a towel between your skin and the heat source. ?Leave the heat on for 20 30 minutes. ?Remove the heat if your skin turns bright red. This is especially important if you are unable to feel pain, heat, or cold. You may have a greater risk of getting burned. Eating and drinking Drink enough fluid to keep your urine pale yellow. Resume your normal diet as instructed by your health care provider. Avoid heavy or fried foods thatare hard to digest. Avoid drinking alcohol for as long as instructed by your health care provider. Contact a health care provider if: You have blood in your stool 2 3 days after the procedure. Get help right away if: You have more than a small spotting of blood in your stool. You pass large blood clots in your stool. Your abdomen is swollen. You have nausea or vomiting. You have a fever. You have increasing abdominal pain that is not relieved with medicine. Summary After the procedure, it is common to have a small amount of blood in your stool. You may also have mild abdominal cramping and bloating. For the first 24 hours after the procedure, do not drive or use machinery, sign important documents, or drink alcohol. Contact your health care provider if you have a lot of blood in your stool, nausea or vomiting, a fever, or increased abdominal pain. This information is not intended to replace advice given to you by your health care provider. Make sure you discuss any questions you have with your health care provider. Document Released: 10/26/2004 Document Revised: 01/04/2018 Document Reviewed: 05/25/2016 [employer] Patient Education 2020 [employer]. 04/18/2024 09:29:14 Moderate Conscious Sedation, Adult, Care After Moderate Conscious Sedation, Adult, Care After These instructions provide you with information about caring for yourself after your procedure. Your health care provider may also give you more specific instructions. Your treatment has been plannedaccording to current medical practices, but problems sometimes occur. Call your health care provider if you have any problems or questions after your procedure. What can I expect after the procedure? After your procedure, it is common: To feel sleepy for several hours. To feel clumsy and have poor balance for several hours. To have poor judgment for several hours. To vomit if you eat too soon. Follow these instructions at home: For at least 24 hours after the procedure: Do not: ?Participate in activities where you could fall or become injured. ?Drive. ?Use heavy machinery. ?Drink alcohol. ?Take sleeping pills or medicines that cause drowsiness. ?Make important decisions or sign legal documents. ?Take care of children on your own. Rest. Eating and drinking Follow the diet recommended by your health care provider. If you vomit: ?Drink water, juice, or soup when you can drink without vomiting. ?Make sure you have little or no nausea before eating solid foods. General instructions Have a responsible adult stay with you until you are awake and alert. Take tixr-gxn-ovwnzak and prescription medicines only as told by your health care provider. If you smoke, do not smoke without supervision. Keep all follow-up visits as told by your health care provider. This is important. Contact a health care provider if: You keep feeling nauseous or you keep vomiting. You feel light-headed. You develop a rash. You have a fever. Get help right away if: You have trouble breathing. This information is not intended to replace advice given to you by your health care provider. Make sure you discuss any questions you have with your health care provider. Document Released: 01/02/2014 Document Revised: 02/24/2018 Document Reviewed: 07/03/2016 [employer] Patient Education [employer]. Follow Up Care 04/05/2024 08:01:02 With:ESPERANZA RODRIGUEZ DO, Clinical Gastroenterology Address: [address] [place] [address] [place] [address] [phone] When: only if needed Comments:NEXT COLONOSCOPY 5 YEARS With:FABRICE BIRCH Address: [address] [place] [phone] When: [facility] 01-22-2025 Note Discharge Instructions Thank you for allowing [facility] to assist you with your healthcare needs. The following is importantdischarge information regarding your hospital visit. Your Care Team FABRICE BIRCH What to do next Instructions From Your Doctor Repeat colonoscopy 5 years Follow Up Appointments Follow Up with ESPERANZA RODRIGUEZ DO Clinical Gastroenterology When:Only if needed Where:[address] [place] [address] [place] [address] [phone] Additional Information: NEXT COLONOSCOPY 5 YEARS Follow Up with FABRICE BIRCH APRN-BUBBA Where:[address] [place] [id number] [phone] The Following Activity and Diet Have Been Ordered for You Discharge Activity - Ordered -- Driving Restricted, No driving until tomorrow, 04/18/24 7:54:00 EST Discharge Return to Work, School, or Sports (Discharge Return to status) - Ordered -- May return to: work, 04/18/24 7:54:00 EST Discharge Diet - Ordered -- Type of Diet: Regular Diet, 04/18/24 7:54:00 EST Medications Please ask your primary doctor or pharmacist before taking any other medication not listed, including over the counter drugs, herbal medications, vitamins and or supplements as they may interact withyour home medications. What How Much When Why Instructions Last Dose Unchanged apremilast (Otezla 30 mg oral tablet) 1 tab(s) by mouth Two (2) times a day Unchanged ciprofloxacin (Cipro 250 mg oral tablet) See instructions take one tablet as needed Unchanged herbal/ nutritional product (Probiotic) Unchanged Misc Medication adrenal strength Unchanged omega-3 polyunsaturated fatty acids (Fish Oil 1000 mg oral capsule) by mouth Once a day Unchanged polyethylene glycol 3350 with electrolytes (PEG-3350 with Electrolytes (Eqv-GoLYTELY) oral powder for reconstitution) See instructions Positive colorectal cancer screening using Cologuard test Take as directed starting 1 day before colonoscopy. Follow instructions as provided by your GI provider at [facility]. Please take this list to your next doctor s visit. Bring all medications you take, including over the counter medications, herbals and other supplements with you to your doctor s visit. Patients and families are reminded to discard old lists and to update any records with all medication providers or retail pharmacies. Education Materials Nausea and Vomiting, Adult Nausea is the feeling that you have an upset stomach or that you are about to vomit. Vomiting is when stomach contents are thrown up and out of the mouth as a result of nausea. Vomiting can make you feel weak and cause you to become dehydrated. Dehydration can make you feel tired and thirsty, cause you to have a dry mouth, and decrease how often you urinate. Older adults and people with other diseases or a weak disease-fighting system (immune system) are at higher risk for dehydration. It is important to treat your nausea and vomiting as told by your health care provider. Follow these instructions at home: Watch your symptoms for any changes. Tell your health care provider about them. Follow these instructions to care for yourself at home. Eating and drinking Take an oral rehydration solution (ORS). This is a drink that is sold at pharmacies and retail stores. Drink clear fluids slowly and in small amounts as you are able. Clear fluids include water, ice chips, low-calorie sports drinks, and fruit juice that has water added (diluted fruit juice). Eat bland, zkhl-ol-uivwbn foods in small amounts as you are able. These foods include bananas, applesauce, rice, lean meats, toast, and crackers. Avoid fluids that contain a lot of sugar or caffeine, such as energy drinks, sports drinks, and soda. Avoid alcohol. Avoid spicy or fatty foods. General instructions Take ppht-sop-zenndtz and prescription medicines only as told by your health care provider. Drink enough fluid to keep your urine pale yellow. Wash your hands often using soap and water. If soap and water are not available, use hand service greeter. Make sure that all people in your household wash their hands well and often. Rest at home while you recover. Watch your condition for any changes. Breathe slowly and deeply when you feel nauseated. Keep all follow-up visits as told by your health care provider. This is important. Contact a health care provider if: Your symptoms get worse. You have new symptoms. You have a fever. You cannot drink fluids without vomiting. Your nausea does not go away after 2 days. You feel light-headed or dizzy. You have a headache. You have muscle cramps. You have a rash. You have pain while urinating. Get help right away if: You have pain in your chest, neck, arm, or jaw. You feel extremely weak or you faint. You have persistent vomiting. You have vomit that is bright red or looks like black coffee grounds. You have bloody or black stools or stools that look like tar. You have a severe headache, a stiff neck, or both. You have severe pain, cramping, or bloating in your abdomen. You have difficulty breathing, or you are breathing very quickly. Your heart is beating very quickly. Your skin feels cold and clammy. You feel confused. You have signs of dehydration, such as: ? Dark urine, very little urine, or no urine. ? Cracked lips. ? Dry mouth. ? Sunken eyes. ? Sleepiness. ? Weakness. These symptoms may represent a serious problem that is an emergency. Do not wait to see if the symptoms will go away. Get medical help right away. Call your local emergency services (911 in the [place] Do not drive yourself to the hospital. Summary Nausea is the feeling that you have an upset stomach or that you are about to vomit. As nausea getsworse, it can lead to vomiting. Vomiting can make you feel weak and cause you to become dehydrated. Follow instructions from your health care provider about eating and drinking to prevent dehydration. Take deaz-onz-pbgnmtb and prescription medicines only as told by your health care provider. Contact your health care provider if your symptoms get worse, or you have new symptoms. Keep all follow-up visits as told by your health care provider. This is important. This information is not intended to replace advice given to you by your health care provider. Make sure you discuss any questions you have with your health care provider. Document Released: 03/14/2006 Document Revised: 07/06/2019 Document Reviewed: 08/22/2018 [employer] Patient Education 2020 [employer]. Colonoscopy, Adult, Care After This sheet gives you information about how to care for yourself after your procedure. Your health care provider may also give you more specific instructions. If you have problems or questions, contact your health care provider. What can I expect after the procedure? After the procedure, it is common to have: A small amount of blood in your stool for 24 hours after the procedure. Some gas. Mild abdominal cramping or bloating. Follow these instructions at home: General instructions For the first 24 hours after the procedure: ? Do not drive or use machinery. ? Do not sign important documents. ? Do not drink alcohol. ? Do your regular daily activities at a slower pace than normal. ? Eat soft, vnxy-ae-xcaduh foods. Take wmia-fuh-lqgkocu or prescription medicines only as told by your health care provider. Relieving cramping and bloating Try walking around when you have cramps or feel bloated. Apply heat to your abdomen as told by your health care provider. Use a heat source that your healthcare provider recommends, such as a moist heat pack or a heating pad. ? Place a towel between your skin and the heat source. ? Leave the heat on for 20 30 minutes. ? Remove the heat if your skin turns bright red. This is especially important if you are unable to feel pain, heat, or cold. You may have a greater risk of getting burned. Eating and drinking Drink enough fluid to keep your urine pale yellow. Resume your normal diet as instructed by your health care provider. Avoid heavy or fried foods thatare hard to digest. Avoid drinking alcohol for as long as instructed by your health care provider. Contact a health care provider if: You have blood in your stool 2 3 days after the procedure. Get help right away if: You have more than a small spotting of blood in your stool. You pass large blood clots in your stool. Your abdomen is swollen. You have nausea or vomiting. You have a fever. You have increasing abdominal pain that is not relieved with medicine. Summary After the procedure, it is common to have a small amount of blood in your stool. You may also have mild abdominal cramping and bloating. For the first 24 hours after the procedure, do not drive or use machinery, sign important documents, or drink alcohol. Contact your health care provider if you have a lot of blood in your stool, nausea or vomiting, a fever, or increased abdominal pain. This information is not intended to replace advice given to you by your health care provider. Make sure you discuss any questions you have with your health care provider. Document Released: 10/26/2004 Document Revised: 01/04/2018 Document Reviewed: 05/25/2016 [employer] Patient Education 2020 [employer]. Moderate Conscious Sedation, Adult, Care After These instructions provide you with information about caring for yourself after your procedure. Your health care provider may also give you more specific instructions. Your treatment has been plannedaccording to current medical practices, but problems sometimes occur. Call your health care provider if you have any problems or questions after your procedure. What can I expect after the procedure? After your procedure, it is common: To feel sleepy for several hours. To feel clumsy and have poor balance for several hours. To have poor judgment for several hours. To vomit if you eat too soon. Follow these instructions at home: For at least 24 hours after the procedure: Do not: ? Participate in activities where you could fall or become injured. ? Drive. ? Use heavy machinery. ? Drink alcohol. ? Take sleeping pills or medicines that cause drowsiness. ? Make important decisions or sign legal documents. ? Take care of children on your own. Rest. Eating and drinking Follow the diet recommended by your health care provider. If you vomit: ? Drink water, juice, or soup when you can drink without vomiting. ? Make sure you have little or no nausea before eating solid foods. General instructions Have a responsible adult stay with you until you are awake and alert. Take qgyo-anw-qkzxvac and prescription medicines only as told by your health care provider. If you smoke, do not smoke without supervision. Keep all follow-up visits as told by your health care provider. This is important. Contact a health care provider if: You keep feeling nauseous or you keep vomiting. You feel light-headed. You develop a rash. You have a fever. Get help right away if: You have trouble breathing. This information is not intended to replace advice given to you by your health care provider. Make sure you discuss any questions you have with your health care provider. Document Released: 01/02/2014 Document Revised: 02/24/2018 Document Reviewed: 07/03/2016 [employer] Patient Education 2020 [employer] Additional Information VACCINATE! IT SAVES LIVES! Members of the community who have not yet received the COVID-19 vaccine and would like to receive it can visit one of [facility] vaccine clinics. There are many vaccine clinic locations within the [facility]. For locations and available times, please visit https://[email or web address].[place].gov/. It is important to note that some COVID mobile vaccine clinics are held outdoors and may be canceled in rainy or stormy conditions. To learn more about pediatric vaccinations (ages 5-11), we invite you to visit the [facility] webpage. https://www.[facility].org/pages/3690-Riqzx-Oqrhleacjan-Haxlxlcmfv-Gomlv-Doy stions.htmlTo learn more about the COVID-19 vaccine, we invite you to visit the CDC website for a list of frequently asked questions.https://www.cdc.gov/coronavirus/2019-ncov/vaccines/faq.html [employer] Patient Portal Access Instructions: Stay connected with your healthcare team and access your personal medical information anytime with the [facility] Patient Portal. Please follow the directions below to create your [employer] account: 1.Access the email account you provided upon registration to the hospital/physician office.2.Look for an invitation email from [facility].3.Open the email and access the invitation link: AcceptInvitation to [employer].4.Fill in the required blank to create your account. To access your account, visit [employer]. Click the blue button labeled Access Patient Portal and then log in with the username and password that you created in the steps above. You will be able to view your test results, lab results, a summary of your visits, upcoming appointments and more. There is also a convenient messaging option where you can send secure messages to your p francivider. In addition, you will have the ability to download any documents or summaries to your computer and/or send the information securely to a physician. Remember that your healthcare information is confidential, so carefully consider who you will allowto register on the [facility] for access to your information. You can also access the [facility] Patient Portal on the [facility] fahad. Simply click on Patient Portal and then log into your account. If you would like to receive a full copy of your medical records, please contact the [facility] Medical Records Department by calling [phone], Tuesday through Tuesday between 8 a.m. and 4:30 p.m. HOW TO SAFELY DISPOSE OF PRESCRIPTION MEDICATIONS Please use one of the following methods to safely dispose of your unused medications. 1.Use a drug disposal kit: the drug disposal pouch allows you to safely discard your old and unuseddrugs. Ask your nurse to give you one when you are discharged.2.Visit a local take-back location: Many local pharmacies and police departments have programs that collect old and unwanted prescriptiondrugs. Call your local pharmacy or go to http://[employer]/5C6Qg9o to find one close to you.3.Make use of household items: Use cat litter or old coffee grounds to dispose medications if other options arenot available. Mix your drugs with these household products, seal them in an airtight container andthrow it into the garbage. Call [facility]: [phone] to be sure your drugs can be disposed of in this way. Some medicines may require a different approach.4.Never flush your medications down the toilet. IF YOU HAVE BEEN PRESCRIBED AN OPIOID FOR PAIN If you have been prescribed an opioid (such as hydrocodone, oxycodone or morphine), it is critical to understand the possible side effects and risks of opioid pain medications. Even when taken as directed, opioids can have several side effects including: Tolerance, meaning you might need to take more of a medication for the same pain relief. Nausea, vomiting and/or constipation. Sleepiness, dizziness, dry mouth, confusion, depression or itching. Physical dependence, meaning you have withdrawal symptoms when a medication is stopped, can develop within a few days. KNOW YOUR RESPONSIBILITIES It is important to know exactly how much and how often to take the opioid pain medications you are prescribed. Never take opioids in higher amounts or more often than prescribed. Do not combine opioids with alcohol or other drugs that cause drowsiness, such as benzodiazepines, also known as benzos, including diazepam and alprazolam, muscle relaxants or sleep aids. Never sell or share prescription opioids. This is illegal. Store opioids in a secure place and out of reach of others (including children, family, friends and visitors). The last page of this document has been signed and retained as a CHART COPY. Signatures Patient Education Materials Nausea and Vomiting, Adult Colonoscopy, Adult, Care After Moderate Conscious Sedation, Adult, Care After Medication Leaflets My discharge plan and instructions have been reviewed and explained to me and I,MILLA KEY understand my current condition and have read and understand these discharge instructions. I have received a written copy of the plan/instructions. If I have questions, I am aware that I should contactmy doctor. Patient/Block Paver Signature: Date/Time: Relationship to Patient: Witness Name/Signature: Date/Time: [facility]01-22-2025 Note Indication for Surgery Positive Cologuard Preoperative Diagnosis Colorectal cancer screening Postoperative Diagnosis 1. 2 mm transverse colon polyp Operation Colonoscopy with snare polypectomy Surgeon(s) Esperanza Rodriguez D.O. Anesthesia MAC Estimated Blood Loss None Specimen(s) Polyp Complications None Technique Patient was evaluated in the preoperative area and surgical consent was obtained. She was then brought endoscopy and monitored on pulse oximetry, cardiac monitoring and placed on supplemental oxygen.She was placed in left lateral decubitus position and a surgical timeout was obtained. Sedation was provided by anesthesia. A digital exam was unremarkable. The colonoscope was inserted into the rectum advanced towards the cecum. A small transverse colon polyp was removed with cold snare polypectomy. The polyp was retrieved. The scope was maneuvered to the cecum which was normal. Photographs are obtained. Scope then carefully checked under 6-minute withdrawal with a good prep. Retroflexed view of the rectum was normal. Scope was removed. Patient is then transferred to the recovery area in stable condition by signs. Discharge summary: 1. Final Diagnosis: 2mm transverse colon polyp 2. Outcome: Patient tolerated procedure well without complication 3. Disposition: Patient was discharged home to follow previous diet and medications 4. Follow-up care: Follow-up with primary care physician as scheduled. Repeat exam in 5 years Digitally Signed by ESPERANZA RODRIGUEZ DO on 04/18/2024 09:25 AM [facility]01-22-2025 Anesthesiology Consult note Patient: MILLA KEY Age: 63 years Sex: Female : 1960 Associated Diagnoses: None Author: TRELL WYNNE ONLINE MEDIA DIRECTOR-SUPERVISOR PUBLIC HEALTH NURSING Assessment Postanesthesia assessment Vitals: Vital signs from flowsheet : Vital Signs 04/18/2024 9:20 EST Heart Rate Monitored 78 bpm bpm Respiratory Rate - Anes 20 br/min br/min Systolic Blood Pressure Non-Invasive 117 mmHg mmHg Diastolic Blood Pressure Non-Invasive 77 mmHg mmHg 04/18/2024 9:15 EST Heart Rate Monitored 74 bpm bpm Respiratory Rate - Anes 24 br/min br/min Systolic Blood Pressure Non-Invasive 106 mmHg mmHg Diastolic Blood Pressure Non-Invasive 75 mmHg mmHg 04/18/2024 9:10 EST Heart Rate Monitored 79 bpm bpm Respiratory Rate - Anes 17 br/min br/min Systolic Blood Pressure Non-Invasive 120 mmHg mmHg Diastolic Blood Pressure Non-Invasive 72 mmHg mmHg 04/18/2024 9:05 EST Heart Rate Monitored 88 bpm bpm Respiratory Rate - Anes 19 br/min br/min Systolic Blood Pressure Non-Invasive 118 mmHg mmHg Diastolic Blood Pressure Non-Invasive 73 mmHg mmHg 04/18/2024 8:05 EST Systolic Blood Pressure Non-Invasive 144 mmHg HI Diastolic Blood Pressure Non-Invasive 89 mmHg 04/18/2024 7:58 EST Temperature Temporal Artery 37.4 DegC Peripheral Pulse Rate 93 bpm Respiratory Rate 12 br/min LOW , Measurements from flowsheet . Mental status: alert & oriented x 4. Respiratory function: respirations are non-labored. Respiratory support: none. CV function: Normal rate. Cardiovascular support: none. Pain. Nausea status: see nursing documentation of medications. Postoperative hydration status: within normal limits. Digitally Signed by TRELL WYNNE on 04/18/2024 09:21 AM [facility]01-22-2025 Anesthesiology Consult note Patient: MILLA KEY Age: 63 years Sex: Female : 1960 Associated Diagnoses: None Author: TRELL WYNNE Preoperative Information Time of last solid food intake: 04/18/2024 00:00:00 Time of last clear liquid intake: 04/18/2024 05:30:00 Anesthesia history Patient's history: negative. Family's history: negative. Health Status Allergies: Allergic Reactions (Selected) Severity Not Documented Keflex- Hives. Septra- Hives., Allergies (2) ActiveSeverityReaction SeptraHives KeflexHives Current medications: (Selected) Inpatient Medications Ordered Lactated Ringers Infusion 1,000 mL: 20 mL/hr, Intravenous Prescriptions Prescribed Cipro 250 mg oral tablet: See Instructions, take one tablet as needed, 30 tab(s), 11 Refill(s) PEG-3350 with Electrolytes (Eqv-GoLYTELY) oral powder for reconstitution: See Instructions, Take asdirected starting 1 day before colonoscopy. Follow instructions as provided by your GI provider at [facility]., 1 EA, 0 Refill(s) Documented Medications Documented Fish Oil 1000 mg oral capsule: mg, cap(s), Oral, qDay, 0 Refill(s) Misc Medication: adrenal strength, 0 Refill(s) Otezla 30 mg oral tablet: 30 mg, 1 tab(s), Oral, BID, 0 Refill(s) Probiotic: 0 Refill(s), Medications (1) Active Scheduled: (0) Continuous: (1) Lactated Ringers Infusion 1,000 mL 1,000 mL, Intravenous, 20 mL/hr PRN: (0) Problem list: Medical Screening for cervical cancer / SNOMED CT 4395839058 / Confirmed Positive colorectal cancer screening using Cologuard test / SNOMED CT 3610907906 / Confirmed Well adult exam / SNOMED CT 956782295 / Confirmed Screening for breast cancer / SNOMED CT 801344669 / Confirmed Screening for colon cancer / SNOMED CT 106130270 / Confirmed Recurrent UTI / SNOMED CT 969587982 / Confirmed, Active Problems (7) Positive colorectal cancer screening using Cologuard test Recurrent UTI Screening for breast cancer Screening for cervical cancer Screening for colon cancer Tobacco use Well adult exam Histories Past Medical History: No active or resolved past medical history items have been selected or recorded. Family History: No family history items have been selected or recorded. Procedure history: No active procedure history items have been selected or recorded. Social History: Social & Psychosocial Habits Alcohol 04/18/2024Risk Assessment: Denies Alcohol Use 04/18/2024 Use: Never Substance Abuse 04/18/2024Risk Assessment: Denies Substance Abuse 04/18/2024 Use: Never Tobacco 04/18/2024 Tobacco Use: 4 or less cigarettes(less Home/Environment 04/18/2024 Primary Memorial Counselor: Self, lives with her Spouse Name Raffaele [employer] 04/18/2024 Caffeine intake amount: none Physical Examination Vital Signs 04/18/2024 8:05 EST Systolic Blood Pressure Non-Invasive 144 mmHg HI Diastolic Blood Pressure Non-Invasive 89 mmHg 04/18/2024 7:58 EST Temperature Temporal Artery 37.4 DegC Peripheral Pulse Rate 93 bpm Respiratory Rate 12 br/min LOW Vital Signs (last 24 hrs) Last Charted Temp Xpityfuq04.4 DegC (APR 18 07:58) SBPH 144 mmHg (APR 18 08:05) DBP89 mmHg (APR 18 08:05) Measurements from flowsheet : Measurements 04/18/2024 8:05 EST Height 162 cm Admission Weight 55.6 kg Kaufman Body Weight 54.19 kg Admission Body Mass Index 21.19 m2 Pain assessment: Pain Assessment 04/18/2024 8:05 EST Primary Pain Intensity 0 Pain Scale Type 0-10 Pain scale . General: Alert and oriented. Airway: Normal temporomandibular joint mobility, Normal mouth, Normal neck range of motion. Mallampati classification: II (soft palate, fauces, uvula visible). Dentition Evaluation: Denies loose/chipped teeth. Respiratory: Respirations are non-labored. Cardiovascular: Normal rate. Neurologic: Alert, Oriented. Review / Management Results review: No qualifying data available , Lab results 04/18/2024 8:57 EST SN - CAt - Case Attendee SN - CAt - Case Attendee SN - CAt - Case Attendee SN - CAt - Case Attendee SN - CAt - Case Attendee SN - CAt - Case Attendee SN - CAt - Case Attendee SN - CAt - Case Attendee SN - CAt - Case Attendee SN - CAt - Case Attendee SN - CAt - Case Attendee SN - CAt - Case Attendee SN - CAt - Role Performed Primary Surgeon SN - CAt - Role Performed SUPERVISOR PUBLIC HEALTH NURSING SN - CAt - Role Performed Wafer Machine Operator 1 SN - CAt - Role Performed Wafer Machine Operator 2 SN - CAt - Role Performed Graduate School Dean SN - CAt - Role Performed Graduate School Dean 04/18/2024 8:12 EST SN - Preop - CTm Pt Ready for OR/Proced 04/18/2024 8:12 04/18/2024 8:12 EST Forearm Right 04/18/2024 22 gauge Peripheral IV Activity: Insert new site Peripheral IV Dressing Condition: Clean, Dry, Intact Peripheral IV Dressing Activity: Applied Peripheral IV Line Status/Patency: Flushes easily Peripheral IV Site Condition: No complications Peripheral IV Equipment: Extension set Peripheral IV Number of Attempts: 1 04/18/2024 8:05 EST Height 162 cm Admission Weight 55.6 kg Kaufman Body Weight 54.19 kg Admission Body Mass Index 21.19 m2 Systolic Blood Pressure Non-Invasive 144 mmHg HI Diastolic Blood Pressure Non-Invasive 89 mmHg Primary Pain Intensity 0 Pain Scale Type 0-10 Pain scale Respirations Unlabored Respiratory Pattern Regular Abdomen Description Non-distended, Symmetric Abdomen Palpation Non-Tender Bowel Sounds All Quadrants Present Urinary Elimination Voiding, no difficulties Skin Temperature Warm Skin Description Normal for ethnicity Skin Integrity Intact Characteristics of Speech Clear Level of Consciousness Alert Strength All Extremities Strong Tone All Extremities Normal Sensation All Extremities Intact Affect/Behavior Appropriate, Calm, Cooperative Orientation Oriented x 4 Activity Status ADL Awake, Resting Standard Safety ID band on, Allergy Band on, Call device within reach, Bed in low position, Wheels locked, Upper/Half-Length side-rails up, Phone within reach, personal items within reach, Visitor atbedside, Safety level maintained 04/18/2024 8:04 EST Allergies Yes Consent Form Signed Yes Patient Dressed In Hospital gown History & Physical On Chart Yes NPO Status Maintained Allergy Band on and Verified Yes Patient ID Band on and Verified Yes Implants Verified Yes Pacemaker/AICD Verified Yes Site Verified by Patient/Family Yes Last Fluid Intake 04/18/2024 5:30 Last Food Intake 04/17/2024 7:00 04/18/2024 8:01 EST Designated Person #1 We May Share RENA KEY [phone] Designated Person #1 Relationship Spouse Privacy Restrictions Requested None Status No, per patient Sensory Deficits None Sleep Apnea Snore No Sleep Apnea Tired No Sleep Apnea Obstruction No Sleep Apnea Pressure No Sleep Apnea BMI No Sleep Apnea Age Yes Sleep Apnea Neck No Sleep Apnea Gender No Sleep Apnea Score 1 Diagnosed With Sleep Apnea No Advanced Directives No - refuses information Infectious Disease Symptoms Patient states no symptoms Infectious Disease Recent Exposure No Alcohol and Drug Use No Employee of Institutional Living No Health Care Employee No History of Exposure to TB No History of Positive Chest X-Ray for TB No History of Positive TB Skin Test No Homeless No Known Immunosuppression No Recent Immigrant No Resident of Institutional Living No Bloody Sputum No Fatigue No Fever No Loss of Appetite No Night Sweats No Persistent Cough > 3 Weeks No Weight Loss No Barriers to Learning None evident Teaching Method Explanation Preferred Spoken Language Kiswahili Preferred Written Language Kiswahili Teaching Evaluation No further teaching needed Safety Brochure Information Reviewed Unable to complete [facility] Video Viewed No Patient's Current Physicians QUETA Discharge To, Anticipated Home independently Prev Test Positive/Diagnosis w/COVID-19 No Current Quarantine/Isolated any Illness No Any Contact with Sick Animals/Birds No Traveled Anywhere in Last 30 Days No Lost Weight Unintentionally Recently No Eat Poorly Due to Decreased Appetite No Total MST Score 0 No Personal Devices, Patient Valuables Glasses Anesthesia/Transfusions None Admission Note-Nursing Same Day Patient History 04/18/2024 7:58 EST Temperature Temporal Artery 37.4 DegC Peripheral Pulse Rate 93 bpm Respiratory Rate 12 br/min LOW Heart Rhythm Regular Oxygen Saturation 98 % 04/18/2024 7:55 EST SN - Preop - CTm Pt in SDS Room 04/18/2024 7:50 04/18/2024 7:11 EST [place] History and Physical . Assessment and Plan [place] [employer] (ASA) physical status classification: Class II. Anesthetic Preoperative Plan Anesthetic technique: MAC. Informed consent: signed by patient. Digitally Signed by TRELL WYNNE on 04/18/2024 08:59 AM [facility]01-22-2025 Note DRAPER ADMISSION HISTORY AND PHYSICIAL CHIEF COMPLAINT: Colorectal cancer screening, positive Cologuard HISTORY OF PRESENT ILLNESS: Positive Cologuard REVIEW OF SYSTEMS: Constitutional: denies weight loss Cardiovascular:denies chest pain, palpitations Respiratory:denies shortness of breath Gastrointestinal:no abd pain Musculoskeletal: no arthralgias Skin: no rashes ACTIVE PROBLEMS: (7) Positive colorectal cancer screening using Cologuard test (1837375349) Recurrent UTI (053222282) Screening for breast cancer (177261922) Screening for cervical cancer (2991041589) Screening for colon cancer (530665695) Tobacco use (8258061411) Well adult exam (559884588) MEDICATIONS: Active Inpt Meds: None Active PRN Meds: None One Time Meds: None Active IV Meds: None ALLERGIES: (2) Keflex Septra FAMILY HISTORY: SOCIAL HISTORY: PHYSICAL EXAM: VITALS: No Data Available 24 Hr Tmax: No Data Available 36 Hr Tmax: No Data Available Vital Signs are the last 5 in the past 48 hours. Weights display the last 5 within 7 days. Initial Wt: No Data Available Current Wt: No Data Available physical exam alert and oriented cardio; regular without murmur pulm; clear abd; soft, nontender LABS: No 36hr Lab Data DIAGNOSTICS: IMPRESSION: Positive Cologuard PLAN: Colonoscopy as discussed in the office Digitally Signed by ESPERANZA RODRIGUEZ DO on 04/18/2024 07:11 AM [facility]11-12-2024 Note ORIGINAL FROM: [address] [address] PROCEDURE FOR: MILLA KEY [address] [place] [id number] Home: PID#: [id number] Exam#: [id number] : 1960 Age: 63 TO: FABRICE BIRCH ONLINE MEDIA DIRECTOR PICK PACK WORKER [address], [place] [address] Fax: NO FAX EXAMINATION: SCREENING DIGITAL BILATERAL MAMMOGRAM WITH TOMOSYNTHESIS, 02/07/2024 8:44 am TECHNIQUE: Screening mammography of the bilateral breasts was performed with tomosynthesis. 2D standard and 3D tomosynthesis combination imaging performed through both breasts in the MLO and CC projection. Computer aided detection was utilized in the interpretation of this exam. COMPARISON: March 22, 2023, March 17, 2022, March 04, 2021 HISTORY: Breast cancer screening. FINDINGS: BREAST DENSITY: The breasts are heterogeneously dense, which may obscure small masses. A 6 mm asymmetry in the right inner breast on the CC view only located approximately 2.5 cm from the nipple represents interval change. There is no suspicious mass architectural distortion or microcalcification in the left breast. IMPRESSION: The possible asymmetry in the right inner breast appears indeterminate. Additional views with spot compression tomosynthesis in the CC position along with a regular ML view are recommended. If a mass is confirmed, then an ultrasound will be recommended. We will contact the patient to arrange for the exam. Raz Bullockzick risk calculations, generated with the history provided, report this patient's 10 year risk and lifetime risk for developing breast cancer at 3.4% and 7.5%, respectively. Based on this assessment tool, if the patient's calculated lifetime risk is below 20%, then the patient is considered at average risk for developing breast cancer. If the patient's calculated lifetime risk is at or above 20%, then the patient is considered high risk for developing breast cancer and may be a candidate for supplemental breast MRI screening in addition to annual mammographic screening per the [employer] [employer]. BIRADS: MAMMOGRAM BI-RADS: 0: Needs addl evaluation RECALL: immediate RECALL TYPE: Right mammo + US LETTER SENT: Abnormal-Needs additional work up BI-RADS 0 Interpreted by: Miesha Rosales Preliminary Report By: Miesha Rosales Electronically signed By Miesha Rosales Dictated Date: 02/07/2024 11:31:18 AM Prelim Date: 02/07/2024 11:38:35 AM Sign Date: 02/07/2024 11:38:35 AM Ordering Provider: FABRICE BIRCH Prompt Care Rn: GELACIO HOFFMAN RT (R)(M) letter sent: Abnormal-Needs additional work up BI-RADS 0 Mammogram BI-RADS: 0 [facility]05-31-2023 Evaluation + Plan note Future Scheduled Tests Laboratory* Antinuclear Antibody Screen, Serum 08/25/22 * Rheumatoid Factor 08/25/22 * Complete Blood Count 08/25/22 * Complete Metabolic Panel 08/25/22 Radiology* XR Hip Bilateral w/Pelvis Minimum 5 Views 08/25/22 * US Pelvis Non-OB W/Transvaginal 08/25/22 [facility] Evaluation + Plan note No data available for this section [facility] Evaluation + Plan note Future Appointments Appointment Date:02/09/2024 08:30:00 AM Scheduled Provider: Location:[facility] Appointment Type:[place] Mammogram Diagnostic Right w/ [place] Appointment Date:02/09/2024 09:00:00 AM Scheduled Provider: Location:[facility] Appointment Type:US Breast Right Limited Future Scheduled Tests Radiology* [place] Mammo Diagnostic Right w/ [place] 02/09/24 * US Breast Right Limited 02/09/24 [facility] Hospital Discharge instructions No data available for this section [facility] Progress note No data available for this section [facility] Summary Purpose Family History No Family History Records Found No data available for this section No Family History Records FoundNo Family History Records Found No data available for this section No data available for this section No data available for this section No Family History Records Found Advance Directives No Advanced Directives Records FoundNo Advanced Directives Records FoundNo Advanced Directives Records FoundNo Advanced Directives Records Found Additional Source Comments INFORMATION SOURCE (unrecogn ized section and content) DATE CREATED AUTHOR 09/21/2017 [facility] DATE CREATED AUTHOR AUTHOR'S ORGANIZ ATION 03/23/2023 [facility] ([place]) DATE CREATED AUTHOR AUTHOR'S ORGANIZ ATION 06/10/2023 [facility] DATE CREATED AUTHOR AUTHOR'S ORGANIZ ATION 08/22/2024 [facility] Care Team (unrecognized sect ion and content) Care Team Personnel Name: DIMITRI VARGAS MD Member Role: Primary Care Physician Address: Address: [address] [place] [address]- Care Team Related Persons Name: RAFFAELE KEY Address: Home [address] [place], [place] [id number] Patient Care team informatio n (unrecognized section and content) Care Team Personnel Name: FABRICE BIRCH APRN-PICK PACK WORKER Position: P4 Advanced Marketing Copywriter Member Role: Primary Care Physician Address: Address: [address] [place] [address]- Care Team Related Persons Name: RAFFAELE KEY Address: Home [address] [place], [place] [id number] [place] Care Team Personnel Name: FABRICE BIRCH APRN-PICK PACK WORKER Position: P4 [employer] Copywriter Member Role: Primary Care Physician Address: Address: [address] [place] [address]- Care Team Related Persons Name: RAFFAELE KEY Address: Home [address], [place] [id number] [place] Care Team Personnel Name: FABRICE BIRCH APRN-PICK PACK WORKER Position: P4 Advanced Marketing Copywriter Member Role: Primary Care Physician Address: Address: [address] [place] [address]- [place] Care Team Related Persons Name: RAFFAELE KEY Address: Home [address] [place], [place] [phone] [place] Care Team Personnel Name: FABRICE BIRCH APRN-PICK PACK WORKER Position: P4 Advanced Marketing Copywriter Member Role: Primary Care Physician Address: Address: [address] [place] [address] [place] Care Team Related Persons Name: RAFFAELE KEY Address: Home [address] [place], [place] [phone] [place] Care Team Personnel Name: FBARICE BIRCH APRN-PICK PACK WORKER Position: P4 Advanced Marketing Copywriter Member Role: Primary Care Physician Address: [address] [place] [address]- [place] [employer]: Care Team Related Persons Name: RAFFAELE KEY Care Team Personnel Name: QUETA FABRICE Sanabria ONLINE MEDIA DIRECTOR-PICK PACK WORKER Position: P4 Advanced Marketing Copywriter Member Role: Primary Care Physician Address: [address] [place] [address] [place] [employer]: Care Team Related Persons Name: RAFFAELE KEY FOR RECORDS PERTAINING TO PATIENTS WHO ARE OR HAVE BEEN ENROLLED IN A CHEMICAL DEPENDENCY/SUBSTANCEABUSE PROGRAM, SOME INFORMATION MAY BE OMITTED. This clinical summary was aggregated from multiple sources. Caution should be exercised in using it in the provision of clinical care. This summary normalizes information from multiple sources, and as a consequence, information in this document may materially change the coding, format and clinical context of patient data. In addition, data may be omitted in some cases. CLINICAL DECISIONS SHOULD BE BASED ON THE PRIMARY CLINICAL RECORDS. [facility]. provides no warranty or guarantee of the accuracy or completeness of information in this document.
== END | disposition home or self-care (01) ==
PROVIDERS: Referring Provider Ophthalmology; Visit Provider Ophthalmology
DX: D23.122 Other benign neoplasm of skin of left lower eyelid, including canthus (principal)
CPT/HCPCS: 88305